=== PATIENT | female | born 1965 | race Caucasian/White ===

== ENCOUNTER → 2023-03-29 07:53 | Outpatient (BNVA) | payer OTHER, SELFPAY | PROVIDERS: PCP Internal Medicine; Visit Provider Psychiatry & Neurology Neurology | DX: G40.909 Epilepsy, unspecified, not intractable, without status epilepticus (principal) | CPT/HCPCS: 99202 ==

== ENCOUNTER 2024-08-14 15:24 | Outpatient (AMB) | payer OTHER, SELFPAY ==
--- NOTE | 2024-08-14 15:26 | A.OFFVIS_ITS ---
Vital Signs 08/14/24 15:27 Height 5 ft 6 in Weight 207 lb 8 oz BMI 33.5 BP 132/78 Blood Pressure Location Rt brachial Position Sitting Respiration 16 Pulse 80 Pulse Source Pulse Oximeter Pulse Oximetry (%) 97 Oxygen Delivery Method Room Air Intake Visit Reasons: 1yr follow up Seizure Intake Note: Pt presents to the office for follow up for seizure disorder. Rapid Extractor Operator Required: No Allergies Gadolinium-Containing Contrast Medi Allergy (Severe, Verified 08/14/24 15:27) Anaphylaxis pencillin Adverse Reaction (Intermediate, Uncoded 08/14/24 15:27) Itching Medication List - Last Reconciled 08/14/24 by Maite Dupont MD divalproex ER (Depakote ER) 2 tabs qam and 1 tab qhs orally daily; 90 days levothyroxine 100 mcg PO DAILY multivitamin (Daily Multi-Vitamin tablet) 1 tab PO DAILY HPI Comments Details: 59y/o female comes for follow up of seizures.she also has SALLY on CPAP . she reports having trouble focusing. she feels she was always like that but wondering if she has something going on. History from initial visit -She moved here from [place] 3 years ago and has not seen a neurologist since then. SHe was diagnosed with seizure disorder in 1981 when she was 16 and has been on medications since then.she has been seizure free since 2007.In 1995( she was seizure free for 8 years at that time ) one of her neurologist tried to wean her off medications. she was trialed on dilantin tegretol phenobarb. she had a paternal cousin and grandfather with seizures.The seizures are gen tonic clonic seizures with tongue biting. when younger it started with left arm twitching and warning. [facility] Medical History (Updated 08/14/24 @ 15:36 by Maite Dupont MD) Cognitive change SALLY on CPAP Liver injury Diverticulitis Depression Hypothyroid Hyperlipidemia Gallstones Surgical History H/O hernia repair Family History Father Bladder cancer Mother Alzheimer disease Social History Alcohol intake: current Alcohol intake frequency: holidays/special occasions only Patient Tobacco Use Status: Current everyday Tobacco user Substance Use Type: Marijuana Physical Exam Vital Signs: Last Vital Signs Pulse 80 08/14/24 15:27 Resp 16 08/14/24 15:27 BP 132/78 08/14/24 15:27 Pulse Ox 97 08/14/24 15:27 Oxygen Delivery Method Room Air 08/14/24 15:27 BMI result Body Mass Index 33.5 Const General: cooperative, healthy appearing and comfortable Nutritional Appearance: average body habitus Orientation/consciousness: patient oriented x3 Limitations: no limitations Eyes Pupils: Equal, round and reactive pupils present Neuro General: patient oriented x3, tone normal, moves all extremities and no focal motor deficits Cranial nerves: Yes Facial sensation intact/muscles of mastication intact, Yes Intact sense of smell present, Yes Equal, round and reactive pupils present, Yes Bilaterally intact EOM present, Yes Normal facial strength present, Yes Symmetric palate elevation present and Yes Ability to bilaterally elevate shoulders present Cognition (Neuro): normal cognition Gait exam (Neuro): Normal gait present Motor exam (neuro): 5/5 motor strength present throughout and Normal motor muscle tone present throughout Coordination: [id number] test normal Assessment & Plan Assessment & Plan (1) Seizure disorder: Code(s): G40.909 - Epilepsy, unspecified, not intractable, without status epilepticus (2) SALLY on CPAP: Code(s): G47.33 - Obstructive sleep apnea (adult) (pediatric); Z99.89 - Dependence on other enabling machines and devices Category: Medical (3) Cognitive change: Code(s): R41.89 - Other symptoms and signs involving cognitive functions and awareness Category: Medical Plan continue depakote ER 500mg 2 tabs qam and 1 tab qhs Cognitive therapy for attention Compliance with CPAP stressed Orders: Orders Complete Blood Count Auto Diff Today R41.89 - Other symptoms and signs involv ing cognitive functions and awareness TSH reflex Free T4 Today R41.89 - Other symptoms and signs involving cognitive functions and awareness Vitamin B12 and Folate Today R41.89 - Other symptoms and signs involving cognitive functions and awareness Vitamin D 25-OH (D2 and D3) Today R41.89 - Other symptoms and signs involving cognitive functions and awareness Erythrocyte Sedimentation Rate Today R41.89 - Other symptoms and signs involving cognitive functions and awareness Comprehensive Met. Panel Today R41.89 - Other symptoms and signs involving cognitive functions and awareness YAA Reflex Titer and Pattern Today R41.89 - Other symptoms and signs involving cognitive functions and awareness Referrals Speech and Hearing Referral R41.89 - Other symptoms and signs involving cog nitive functions and awareness Medications: Refilled divalproex ER (Depakote ER) 2 tabs qam and 1 tab qhs orally daily; 90 days 270 tabs 0RF Coding Level of Care Code Est Pt Level 4 (06216) Complex EM visit Add On G2211 Diagnoses Seizure disorder G40.909 SALLY on CPAP G47.33; Z99.89 Cognitive change R41.89
[2024-08-14 15:27] VITALS: BP 132/78; PULSE 80; RESP 16; O2SAT 97; BMI 33.5
== END 2024-08-14 15:57 | disposition home or self-care (01) ==
PROVIDERS: Visit Provider Psychiatry & Neurology Neurology
DX: G40.909 Epilepsy, unspecified, not intractable, without status epilepticus (principal); G47.33 Obstructive sleep apnea (adult) (pediatric); Z99.89 Dependence on other enabling machines and devices; R41.89 Other symptoms and signs involving cognitive functions and awareness
CPT/HCPCS: 99214; G2211

== ENCOUNTER 2024-08-14 15:45 | Outpatient (REF) | payer OTHER, SELFPAY ==
[2024-08-14 17:45] LABS: MANUAL DIFF FLAG NO
[2024-08-14 18:00] LABS: Basophils Absolute Auto 0.1 X10*3/uL (0.0-0.2); Basophils Percent Auto 0.6 % (0-2); Eosinophils Absolute Auto 0.2 X10*3/uL (0.0-0.4); Eosinophils Percent Auto 1.4 % (0-4); Hematocrit 43.1 % (37.0-47.0); Imm Gran Abs Auto 0.09 X10*3/uL (0.00-0.03); Imm Gran Pct Auto 0.7 % (0.0-0.4); Lymphocytes Absolute Auto 4.2 X10*3/uL (1.2-4.9); Lymphocytes Percent Auto 34.2 % (20-40); Mean Corpuscular HGB Conc 34.8 g/dl (31.0-35.0); Mean Corpuscular Hemoglobin 32.9 pg (27.0-33.0); Mean Corpuscular Volume 94.5 fL (80.0-98.0); Mean Platelet Volume 10.7 fL (9.4-12.3); Monocytes Absolute Auto 0.9 X10*3/uL (0.1-1.2); Monocytes Percent Auto 7.5 % (2-11); Neutrophils Absolute Auto 6.8 x10*3/uL (2.0-8.3); Neutrophils Percent Auto 55.6 % (45-73); Platelet Count 221 X10*3/uL (160-400); Red Blood Count 4.56 X10*6/uL (4.20-5.50); Red Cell Distribution Width 11.9 % (11.0-16.0); White Blood Count 12.2 X10*3/uL (4.8-10.8)
[2024-08-14 18:26] LABS: Alanine Aminotransferase 23 U/L (0-31); Albumin Level 4.1 g/dL (3.5-5.0); Alkaline Phosphatase 47 U/L (39-117); Anion Gap 12 (12-20); Aspartate Amino Transferase 23 U/L (5-31); Bilirubin Total 0.3 mg/dL (0.0-1.0); Blood Urea Nitrogen 17 mg/dL (9-16); Calcium 9.2 mg/dL (8.4-10.2); Carbon Dioxide 27 mmol/L (22-29); Chloride 107 mmol/L (96-108); Estimated Glomerular Filt Rate > 60; Glucose Random 93 mg/dL (60-115); Potassium 4.5 mmol/L (3.3-5.1); Sodium 141 mmol/L (135-145); Total Protein 6.9 g/dL (6.5-8.0)
[2024-08-14 18:43] LABS: Erythrocyte Sedimentation Rate 1 MM/HR (0-20)
[2024-08-14 18:46] LABS: TSH reflex Free T4 0.62 uIU/mL (0.32-4.0)
[2024-08-14 18:48] LABS: Folate 8.5 ng/mL (> or = 4.0); Vitamin B12 639 pg/mL (200-900)
[2024-08-16 12:13] LABS: Anti Nuclear Antibody Screen NEGATIVE (NEGATIVE)
[2024-08-20 16:43] LABS: Vitamin D 25-OH, D2 <4 ng/mL; Vitamin D 25-OH, D3 25 ng/mL; Vitamin D 25-OH, Total 25 ng/mL (30-100)
== END 2024-08-14 15:46 | disposition home or self-care (01) ==
LOC: HO.HKASLDS 15:45
PROVIDERS: Visit Provider Psychiatry & Neurology Neurology
DX: G40.909 Epilepsy, unspecified, not intractable, without status epilepticus (principal); G47.33 Obstructive sleep apnea (adult) (pediatric); R41.89 Other symptoms and signs involving cognitive functions and awareness; Z99.89 Dependence on other enabling machines and devices
CPT/HCPCS: 36415; 80053; 82306; 82607; 82746; 84443; 85025; 85652; 86038; 99212

== ENCOUNTER 2025-04-25 07:30 | Outpatient (AMB) | payer OTHER, SELFPAY ==
[2025-04-25 07:34] VITALS: BP 116/84; PULSE 81; O2SAT 97
--- NOTE | 2025-04-25 07:34 | A.OFFVIS_ITS ---
Vital Signs 04/25/25 07:34 Height 5 ft 6 in BP 116/84 Blood Pressure Location Rt brachial Position Sitting Pulse 81 Pulse Source Pulse Oximeter Pulse Oximetry (%) 97 Oxygen Delivery Method Room Air Intake Visit Reasons: 6 mo follow up Intake Note: Patient following up labs done 08/15/24 patient decline speech therapy. Patient has provided us with [facility] sleep study scanned Allergies Gadolinium-Containing Contrast Medi Allergy (Severe, Verified 04/25/25 07:36) Anaphylaxis pencillin Adverse Reaction (Intermediate, Uncoded 04/25/25 07:36) Itching Medication List - Last Reconciled 04/25/25 by Maite Dupont MD divalproex ER (Depakote ER) 2 tabs qam and 1 tab qhs orally daily; 90 days levothyroxine 100 mcg PO DAILY HPI Comments Details: 60y/o female comes for follow up of seizures.No seizures for past 15 years [facility] [place]. she also has SALLY on CPAP .Very compliant.Her CPAP is more than 5 years old and has a signal saying that the motor lifetime has exceeded. she reports having trouble focusing. she did not start cognitive therapy . she thinks her difficulty was related to her new job which made her very anxious.she switched to a differed employement and feeling better. History from initial visit -She moved here from [place] 3 years ago and has not seen a neurologist since then. SHe was diagnosed with seizure disorder in 1981 when she was 16 and has been on medications since then.she has been seizure free since 2007.In 1995( she was seizure free for 8 years at that time ) one of her neurologist tried to wean her off medications. she was trialed on dilantin tegretol phenobarb. she had a paternal cousin and grandfather with seizures.The seizures are gen tonic clonic seizures with tongue biting. when younger it started with left arm twitching and warning. [facility] Medical History Cognitive change SALLY on CPAP Liver injury Diverticulitis Depression Hypothyroid Hyperlipidemia Gallstones Surgical History H/O hernia repair Family History Father Bladder cancer Mother Alzheimer disease Social History Alcohol intake: current Alcohol intake frequency: holidays/special occasions only Patient Tobacco Use Status: Current everyday Tobacco user Substance Use Type: Marijuana Physical Exam Vital Signs: Last Vital Signs Pulse 81 04/25/25 07:34 BP 116/84 04/25/25 07:34 Pulse Ox 97 04/25/25 07:34 Oxygen Delivery Method Room Air 04/25/25 07:34 Const General: cooperative, healthy appearing and comfortable Nutritional Appearance: average body habitus Orientation/consciousness: patient oriented x3 Limitations: no limitations Eyes Pupils: Equal, round and reactive pupils present Neuro General: patient oriented x3, tone normal, moves all extremities and no focal motor deficits Cranial nerves: Yes Facial sensation intact/muscles of mastication intact, Yes Intact sense of smell present, Yes Equal, round and reactive pupils present, Yes Bilaterally intact EOM present, Yes Normal facial strength present, Yes Symmetric palate elevation present and Yes Ability to bilaterally elevate shoulders present Cognition (Neuro): normal cognition Gait exam (Neuro): Normal gait present Motor exam (neuro): 5/5 motor strength present throughout and Normal motor muscle tone present throughout Coordination: [id number] test normal Assessment & Plan Assessment & Plan (1) Seizure disorder: Code(s): G40.909 - Epilepsy, unspecified, not intractable, without status epilepticus (2) SALLY on CPAP: Code(s): G47.33 - Obstructive sleep apnea (adult) (pediatric); Z99.89 - Dependence on other enabling machines and devices Category: Medical (3) Cognitive change: Code(s): R41.89 - Other symptoms and signs involving cognitive functions and awareness Category: Medical Plan continue depakote ER 500mg 2 tabs qam and 1 tab qhs Compliance with CPAP stressed Home sleep test for reeval for new equipment Orders: Orders RT home sleep study Today G47.33 - Obstructive sleep apnea (adult) (pediatric), Z99.89 - Dependence on other enabling machines and devices Coding Level of Care Code Est Pt Level 4 (84097) Diagnoses Seizure disorder G40.909 SALLY on CPAP G47.33; Z99.89 Cognitive change R41.89
== END 2025-04-25 08:02 | disposition home or self-care (01) ==
LOC: HO.HSMS 07:30
PROVIDERS: PCP Internal Medicine; Visit Provider Psychiatry & Neurology Neurology
DX: G40.909 Epilepsy, unspecified, not intractable, without status epilepticus (principal); G47.33 Obstructive sleep apnea (adult) (pediatric); Z99.89 Dependence on other enabling machines and devices; R41.89 Other symptoms and signs involving cognitive functions and awareness
CPT/HCPCS: 99214

== ENCOUNTER → 2025-04-25 07:30 | Outpatient (BNVA) | payer OTHER, SELFPAY | PROVIDERS: PCP Internal Medicine; Visit Provider Psychiatry & Neurology Neurology | DX: G47.33 Obstructive sleep apnea (adult) (pediatric) (principal); Z79.899 Other long term (current) drug therapy; G43.909 Migraine, unspecified, not intractable, without status migrainosus; R41.89 Other symptoms and signs involving cognitive functions and awareness | CPT/HCPCS: 99212 ==

== ENCOUNTER → 2025-07-04 16:04 | Outpatient (REF) | payer OTHER, SELFPAY ==
--- OUTSIDE RECORDS SUMMARY | 2025-06-28 07:54 | XMS_ITS | Encounter Summary ---
Author Organization [facility] Address [address] [place] [address] Care Team Providers Care Buy Boat Operator Name Role Phone Heber Terrell MD Primary Care Provider [phone] Reason for Referral * Hospital - Outpatient (Routine) - Closed Specialty Diagnoses / Procedures Referred By Brittany hair Referred To Contact Gastroenterology Diagnoses History of colonic polyps Procedures COLONOSCOPY Anesthesia - MAC; [facility] ENDOSCOPY [place] COLONOSCOPY FLEXIBLE DIAGNOSTIC W COLLECTION SPECIMEN BRUSHING/WASHING Killian Saeed MD [address] [address] Phone: tel: fax: [facility] Endoscopy [address] [place] [address] Phone: tel: Referral ID Status Reason Start Date Expiration Date Visits Re quested Visits Authorized [id number] Closed 02/28/2025 02/28/2026 1 1 Reason for Visit * Auth/Cert (Routine) Specialty Diagnoses / Procedures Referred By Brittany hair Referred To Contact Diagnoses Personal history of colon polyps, unspecified Procedures COLONOSCOPY MN COLONOSCOPY FLEXIBLE DIAGNOSTIC W COLLECTION SPECIMEN BRUSHING/WASHING [facility] Endoscopy [address] [place] [address] Phone: tel: Referral ID Status Reason Start Date Expiration Date Visits Re quested Visits Authorized [id number] 1 1 Encounter Details Date Type Department Care Team (Latest Contact Info) Description 06/28/2025 7:54 AM EDT - 06/28/2025 11:59 PM EDT Hospital Encounter [facility] Endoscopy [address] [place] [address] Killian Saeed MD 175 [facility] [address] [place] [address] Andrew Brown MD [address] [place] [address] Ailin Vallejo, LEOABRDO [address] [place] [phone] History of colonic polyps Discharge Disposition: Home or Self Care Social History Tobacco Use Types Packs/Day Years Used Date Smoking Tobacco: Every Day Cigarettes 0.7 40.1 Started: 11/14/1983; Last attempted to quit: 12/21/2023 Smokeless Tobacco: Never Alcohol Use Standard Drinks/Week Comments Yes 1 (1 standard drink = 0.6 oz pur e alcohol) occas Housing Instability Answer Date Recorde d Are you worried that in the next 2 months you may not have stable housing? No 01/14/2025 Food Access & Nutrition Answer Date Rec orded Do you have access to a vari ety of food including fruits and vegetables? Yes 01/14/2025 Access to Healthcare Answer Date Record ed Within the last 3 months, ho w many times did you visit the emergency department for your medical care? 1 01/14/2025 Health Literacy Answer Date Recorded How often do you need to hav e someone help you when you read instructions, pamphlets, or other written material from your doctor or pharmacy? Never 01/14/2025 Caregiver: How often do you need to have someone help you when you read instructions, pamphlets, or other written material from your doctor or pharmacy? Not on file 01/14/2025 Financial Risk Answer Date Recorded How hard is it for you to pa y for the very basics like food, housing, medical care, and air conditioning / heating? Not very hard 01/14/2025 Transportation Answer Date Recorded Has the lack of transportati on kept you from meetings, work, or from getting things needed for daily living? No Has the lack of transportati on kept you from medical appointments or from getting medications? No 01/14/2025 Social Isolation Answer Date Recorded How often do you feel lonely or isolated from th ose around you? Never 01/14/2025 Food Risk Answer Date Recorded Within the past 12 months we worried whether our food would run out before we got money to buy more. Never true 01/14/2025 Within the past 12 months th e food we bought just didn't last and we didn't have money to get more. Never true 01/14/2025 Dependent Care Answer Date Recorded Do you need help finding or paying for care for your loved ones. For example, child care specialist or elderly care for an older adult? No 01/14/2025 Education Answer Date Recorded Do you think completing more education or training, like finishing a GED, going to college, or learning a trade, would be helpful for you? Patient declined 01/14/2025 Employment and Income Answer Date Recor ded During the last four weeks, have you been actively looking for work? No 01/14/2025 Living Situation Answer Date Recorded What is your living situation? 0 01/14/2025 Interpersonal Safety Answer Date Record ed Physical Abuse 06/28/2025 Verbal Abuse 06/28/2025 Comments No Sex and Gender Information Value Date Recorded Sex Assigned at Not on file Legal Sex Female 6:49 PM EST Gender Identity Not on file Sexual Orientation Not on file documented as of this encounter Last Filed Vital Signs Vital Sign Reading Time Taken Comments Blood Pressure 111/75 06/28/2025 10:36 AM EDT Pulse 78 06/28/2025 10:36 AM EDT Temperature 36.7 C (98 F) 06/28/2025 10:16 AM EDT Respiratory Rate 18 06/28/2025 10:36 AM EDT Oxygen Saturation 99% 06/28/2025 10:36 AM EDT Inhaled Oxygen Concentration - - Weight 85.3 kg (188 lb) 06/28/2025 9:42 AM EDT Height 167.6 cm (5' 6 ) 06/28/2025 9:42 AM EDT Body Mass Index 30.34 06/28/2025 9:42 AM EDT documented in this encounter Discharge Instructions * Attachments The following attachments cannot be sent through Care Everywhere. * Colonoscopy: Post op (Serbian) * Colon Polyps (Serbian) * Diverticulosis (Serbian) documented in this encounter Medications at Time of Discharge bisacodyL (DULCOLAX) 5 mg EC tablet Take 2 tablets by mouth right before beginning bowel prep. See instructions provided by the office 2 tablet 06/16/2025 divalproex (DEPAKOTE ER) 500 mg 24 hr tablet TAKE 2 TABS BY MOUTH IN THE MORNING AND 1 AT BEDTIME DAILY 06/11/2025 levothyroxine (SYNTHROID, LEVOTHROID) 100 mcg tablet Take 1 tablet (100 mcg total) by mouth 1 (one) time each day. 90 tablet 1 05/28/2025 polyethylene glycol (Golytely) 236-22.74-6.74 -5.86 gram solution Take 4L by mouth once for one dose. May substitue any PEG. Starting at 2PM the day before your procedure drink 1 8oz glasses at your own pace until you complete half of the gallon. Finish 2nd half of the gallon at 8PM. 4000 mL 06/16/2025 terbinafine (LamISIL) 250 mg tabletIndications :Dermatophytosis, nail Take 1 tablet (250 mg total) by mouth 1 (one) time each day. 90 each 06/20/2025 tirzepatide, weight loss, (Zepbound) 5 mg/0.5 mL injectionIndicati ons:Class 2 obesity due to excess calories with body mass index (BMI) of 36.0 to 36.9 in adult, unspecified whether serious comorbidity present Inject 0.5 mL (5 mg total) under the skin every 7 (seven) days. 2 mL 07/03/2025 Ventolin HFA 90 mcg/actuation inhaler TAKE 2 PUFFS (INHALATION) 4 TIMES PER DAY (SHORTNESS OF BREATH OR WHEEZING) FOR 1 WEEKS 12/31/2024 documented as of this encounter Discharge Disposition Disposition Code Departure Means Destination Home or Self Care documented in this encounter Progress Notes * Nicholas Andrews RN - 06/28/2025 10:30 AM EDT Problem: Cognitive:Periop Procedure - Minor Goal: Knowledge of disease or condition will improve Outcome: Adequate for Discharge Problem: Sensory:Periop Procedure - Minor Goal: Demonstrates/reports adequate pain control Outcome: Adequate for Discharge Patient tolerated fluids and snacks well. Spoke with Dr. Saeed about findings, Pt. Meets criteria for discharge. * Rosette Dinh RN - 06/28/2025 9:00 AM EDT Problem: Cognitive:Periop Procedure - Minor Goal: Knowledge of disease or condition will improve Outcome: Progressing Problem: Sensory:Periop Procedure - Minor Goal: Demonstrates/reports adequate pain control Outcome: Progressing documented in this encounter H&P Notes * Killian Saeed MD - 06/28/2025 9:00 AM EDT Pre-Op Diagnosis: History of colon polyps, advanced adenomas Proposed Procedure: Colonoscopy Performing Surgeon/MD/Endoscopist: Killian Saeed MD Medical/History: Past Medical History: Diagnosis Date Abdominal discomfort DX:Abdominal discomfort Diverticulitis DX:Diverticulitis Diverticulitis DX:Diverticulitis Diverticulosis DX:Diverticulosis Epilepsy (CMS/HCC V24, CMS/HCC V28) DX:Epilepsy (HCC) Epilepsy (CMS/HCC V24, CMS/HCC V28) DX:Epilepsy (HCC) History of diverticulitis DX:History of diverticulitis Hypothyroid DX:Hypothyroid Hypothyroidism DX:Hypothyroidism Sleep apnea Past Surgical History: Procedure Laterality Date CHOLECYSTECTOMY PROCEDURE:CHOLECYSTECTOMY CHOLECYSTECTOMY PROCEDURE: HISTORICAL CHOLECYSTECTOMY; COMMENT: liver repair COLONOSCOPY PROCEDURE:COLONOSCOPY COLONOSCOPY PROCEDURE: HISTORICAL COLONOSCOPY HERNIA REPAIR PROCEDURE:HERNIA REPAIR HERNIA REPAIR 11/2022 PROCEDURE: HISTORICAL HERNIA REPAIR/ING; COMMENT: Dr. Falcon LIVER SURGERY PROCEDURE:LIVER SURGERY OTHER SURGICAL HISTORY 10/2020 PROCEDURE: ---- OTHER ----; COMMENT: hysteroscopy with cervical dilation with uterine perforation Medications/Allergies: Prior to Admission medications Medication Sig Start Date End Date Taking? Authorizing Provider bisacodyL (DULCOLAX) 5 mg EC tablet Take 2 tablets by mouth right before beginning bowel prep. See instructions provided by the office 06/16/25 Yes MARILYN Fuentes divalproex (DEPAKOTE ER) 500 mg 24 hr tablet TAKE 2 TABS BY MOUTH IN THE MORNING AND 1 AT BEDTIME DAILY 06/11/25 Yes Historical Provider, levothyroxine (SYNTHROID, LEVOTHROID) 100 mcg tablet Take 1 tablet (100 mcg total) by mouth 1 (one)time each day. 05/28/25 Yes Heber Terrell MD polyethylene glycol (Golytely) 236-22.74-6.74 -5.86 gram solution Take 4L by mouth once for one dose. May substitue any PEG. Starting at 2PM the day before your procedure drink 1 8oz glasses at your own pace until you complete half of the gallon. Finish 2nd half of the gallon at 8PM. 06/16/25 Yes MARILYN Fuentes LORazepam (ATIVAN) 0.5 mg tablet Take 1 tablet (0.5 mg total) by mouth 1 (one) time each day if needed for anxiety for up to 20 days. Max Daily Amount: 0.5 mg 04/09/25 04/29/25 Heber Terrell MD terbinafine (LamISIL) 250 mg tablet Take 1 tablet (250 mg total) by mouth 1 (one) time each day. 06/20/25 09/18/25 Martínez Uribe DPM tirzepatide, weight loss, (Zepbound) 5 mg/0.5 mL injection Inject 0.5 mL (5 mg total) under the skin every 7 (seven) days. 05/27/25 Malini Falcon MD Ventolin HFA 90 mcg/actuation inhaler TAKE 2 PUFFS (INHALATION) 4 TIMES PER DAY (SHORTNESS OF BREATH OR WHEEZING) FOR 1 WEEKS 12/31/24 Historical Provider, bisacodyL (DULCOLAX) 5 mg EC tablet Take 2 tablets by mouth right before your first dose of liquid prep. 06/06/24 06/28/25 Historical Provider, divalproex (DEPAKOTE) [address] tablet 2 tabs by mouth in AM and 1 tab by mouth in PM 03/16/23 06/28/25 Historical Provider, Patient Age:60 y.o. Vitals: Vitals: 06/28/25 0942 BP: (!) 131/91 Pulse: 68 Resp: 18 Temp: 36.9 ??C (98.4 ??F) SpO2: 97% Physical Exam: Mental Status: Clear HEENT: WNL Heart: WNL Lungs: WNL Abdomen: WNL Extremities: WNL Neuro: WNL Labs: Imaging: Diagnosis/Plan: Colonoscopy documented in this encounter Plan of Treatment Upcoming Encounters Date Type Department Care Team (Late st Contact Info) Description 07/08/2025 2:30 PM EDT Nutrition Bariatric Surgery - [place] [address] [phone] Guillermina Aguirre, ILA [address] [phone] 07/22/2025 8:00 AM EDT Consult General Surgery [facility] [address] [phone] Rober Mazariegos MD [address] [address] 08/05/2025 3:00 PM EDT Office Visit Gastroenterology [address] [phone] Abena Stallings PA [address] [address] 09/10/2025 8:00 AM EDT Office Visit Bariatric Surgery [address] [phone] Malini Falcon MD [address] [phone] 09/27/2025 4:20 PM EST Appointment Radiology Department - [address] [phone] documented as of this encounter Procedures Procedure Name Priority Date/Time Associated Diagnosis Comments COLONOSCOPY Routine 06/28/2025 10:15 AM EDT History of colonic polyps TISSUE EXAM Routine 06/28/2025 10:06 AM EDT History of colonic polyps documented in this encounter Results * COLONOSCOPY Anesthesia - MAC; [facility] ENDOSCOPY (06/28/2025 10:15 AM EDT) Anatomical Region Laterality Modality Endoscopy 06/28/2025 9:53 AM EDT Impressions 06/28/2025 10:17 AM EDT - One diminutive polyp in the transverse colon, removed with a jumbo cold forceps. Resected and retrieved. - Severe diverticulosis in the entire examined colon. - One 10 mm polyp in the sigmoid colon, removed with a hot snare. Resected and retrieved. - Internal hemorrhoids. Recommendation: - Await pathology results. - Repeat colonoscopy in 3 years for surveillance. Narrative 06/28/2025 10:17 AM EDT [facility] GI Patient Name: Nona Riggins Procedure Date: 06/28/2025 9:53 AM Date of : 1965 Age: 60 Gender: Female Note Status: Finalized Attending MD: Killian Saeed MD, Procedure Date No Time: 06/28/2025 Procedure: Colonoscopy Indications: Surveillance: Piecemeal removal of large sessile adenoma last colonoscopy (< 3 yrs), High risk colon cancer surveillance: Personal history of colonic polyps Providers: Killian Saeed MD Referring MD: Killian Saeed MD Medicines: Monitored Anesthesia Care Complications: No immediate complications. Estimated blood loss: Minimal. Estimated Blood Loss: Estimated blood loss was minimal. Procedure: Pre-Anesthesia Assessment: - Prior to the procedure, a History and Physical was performed, and patient medications and allergies were reviewed. The patient is competent. The risks and benefits of the procedure and the sedation options and risks were discussed with the patient. All questions were answered and informed consent was obtained. Patient identification and proposed procedure were verified by the physician, the nurse, the engineered wood designer and the refinish technician in the pre-procedure area in the endoscopy suite. Mental Status Examination: alert and oriented. Airway Examination: normal oropharyngeal airway and neck mobility. Respiratory Examination: clear to auscultation. CV Examination: normal. Prophylactic Antibiotics: The patient does not require prophylactic antibiotics. Prior Anticoagulants: The patient has taken no anticoagulant or antiplatelet agents. ASA Grade Assessment: II - A patient with mild systemic disease. After reviewing the risks and benefits, the patient was deemed in satisfactory condition to undergo the procedure. The anesthesia plan was to use monitored anesthesia care (MAC). Immediately prior to administration of medications, the patient was re-assessed for adequacy to receive sedatives. The heart rate, respiratory rate, oxygen saturations, blood pressure, adequacy of pulmonary ventilation, and response to care were monitored throughout the procedure. The physical status of the patient was re-assessed after the procedure. After I obtained informed consent, the scope was passed under direct vision. Throughout the procedure, the patient's blood pressure, pulse, and oxygen saturations were monitored continuously. The Olympus Colonoscope was introduced through the anus and advanced to the cecum, identified by appendiceal orifice and ileocecal valve. The colonoscopy was performed without difficulty. The patient tolerated the procedure well. The quality of the bowel preparation was good. Findings: The perianal and digital rectal examinations were normal. A diminutive polyp was found in the transverse colon. The polyp was sessile. The polyp was removed with a jumbo cold forceps. Resection and retrieval were complete. Estimated blood loss was minimal. Many small and large-mouthed diverticula were found in the entire colon. A 10 mm polyp was found in the sigmoid colon. The polyp was pedunculated. The polyp was removed with a hot snare. Resection and retrieval were complete. Estimated blood loss was minimal. Internal hemorrhoids were found during retroflexion. The hemorrhoids were Grade I (internal hemorrhoids that do not prolapse). Procedure Code(s): --- Professional --- 37676, Colonoscopy, flexible; with removal of tumor(s), polyp(s), or other lesion(s) by snare technique 17887, 59, Colonoscopy, flexible; with biopsy, single or multiple Diagnosis Code(s): --- Professional --- D12.3, Benign neoplasm of transverse colon (hepatic flexure or splenic flexure) D12.5, Benign neoplasm of sigmoid colon CPT copyright 2020 [employer]. All rights reserved. The codes documented in this report are preliminary and upon boatswain's mate review may be revised to meet current compliance requirements. Killian Saeed MD 06/28/2025 10:17:20 AM This report has been signed electronically.Killian Saeed MD Number of Addenda: 0 Note Initiated On: 06/28/2025 9:53 AM Scope Withdrawal Time: 0 hours 9 minutes 20 seconds Scope In: 9:58:09 AM Scope Out: 10:13:57 AM Endoscopy Department at [facility] - [address] [place] [phone] Procedure Note Killian Saeed MD - 06/28/2025 [facility] GI Patient Name: Nona Riggins Procedure Date: 06/28/2025 9:53 AM Date of : 1965 Age: 60 Gender: Female Note Status: Finalized Attending MD: Killian Saeed MD, Procedure Date No Time: 06/28/2025 Procedure: Colonoscopy Indications: Surveillance: Piecemeal removal of large sessile adenoma last colonoscopy (< 3 yrs), High risk colon cancer surveillance: Personal history of colonicpolyps Providers: Killian Saeed MD Referring MD: Killian Saeed MD Medicines: Monitored Anesthesia Care Complications: No immediate complications. Estimated blood loss: Minimal. Estimated Blood Loss: Estimated blood loss was minimal. Procedure: Pre-Anesthesia Assessment: - Prior to the procedure, a History and Physicalwas performed, and patient medications and allergieswere reviewed. The patient is competent. The risks and benefits of the procedure and the sedation optionsand risks were discussed with the patient. Allquestions were answered and informed consent was obtained. Patient identification and proposed procedure were verified by the physician, the nurse, theanesthetist and the refinish technician in the pre-procedure area in the endoscopy suite. Mental Status Examination: alertand oriented. Airway Examination: normal oropharyngeal airway and neck mobility. Respiratory Examination: clear to auscultation. CV Examination: normal. Prophylactic Antibiotics: The patient does notrequire prophylactic antibiotics. Prior Anticoagulants: The patient has taken no anticoagulant or antiplatelet agents. ASA Grade Assessment: II - A patient withmild systemic disease. After reviewing the risks and benefits, the patient was deemed in satisfactory condition to undergo the procedure. The anesthesia plan was to use monitored anesthesia care (MAC). Immediately prior to administration of medications, the patient was re-assessed for adequacy to receive sedatives. The heart rate, respiratory rate, oxygen saturations, blood pressure, adequacy of pulmonary ventilation, and response to care were monitored throughout the procedure. The physical status ofthe patient was re-assessed after the procedure. After I obtained informed consent, the scope was passed under direct vision. Throughout theprocedure, the patient's blood pressure, pulse, and oxygen saturations were monitored continuously. TheOlympus Colonoscope was introduced through the anus and advanced to the cecum, identified by appendiceal orifice and ileocecal valve. The colonoscopy was performed without difficulty. The patient tolerated the procedure well. The quality of the bowel preparation was good. Findings: The perianal and digital rectal examinations were normal. A diminutive polyp was found in the transversecolon. The polyp was sessile. The polyp was removed with a jumbo cold forceps. Resection and retrieval were complete. Estimated blood loss was minimal. Many small and large-mouthed diverticula were foundin the entire colon. A 10 mm polyp was found in the sigmoid colon. The polyp was pedunculated. The polyp was removed witha hot snare. Resection and retrieval were complete. Estimated blood loss was minimal. Internal hemorrhoids were found duringretroflexion. The hemorrhoids were Grade I (internal hemorrhoids that do not prolapse). Procedure Code(s): --- Professional --- 88305, Colonoscopy, flexible; with removal of tumor(s), polyp(s), or other lesion(s) by snare technique 41192, 59, Colonoscopy, flexible; with biopsy,single or multiple Diagnosis Code(s): --- Professional --- D12.3, Benign neoplasm of transverse colon (hepatic flexure or splenic flexure) D12.5, Benign neoplasm of sigmoid colon CPT copyright 2020 [employer]. All rights reserved. The codes documented in this report are preliminary and upon boatswain's mate reviewmay be revised to meet current compliance requirements. Killian Saeed MD 06/28/2025 10:17:20 AM This report has been signed electronically.Killian Saeed MD Number of Addenda: 0 Note Initiated On: 06/28/2025 9:53 AM Scope Withdrawal Time: 0 hours 9 minutes 20 seconds Scope In: 9:58:09 AM Scope Out: 10:13:57 AM Endoscopy Department at [facility] - [address] [place] [phone] IMPRESSION: - One diminutive polyp in the transverse colon, removed with a jumbo cold forceps. Resected and retrieved. - Severe diverticulosis in the entire examinedcolon. - One 10 mm polyp in the sigmoid colon, removedwith a hot snare. Resected and retrieved. - Internal hemorrhoids. Recommendation: - Await pathology results. - Repeat colonoscopy in 3 years for surveillance. us Killian Saeed MD GI~PROCEDURE ORDERABLES Fin al Result * Tissue exam (06/28/2025 10:06 AM EDT) Final Diagnosis A. Large Intestine, Transverse Colon, polyp x1: - Tubular adenoma. B. Large Intestine, Sigmoid Colon, polyp x 1: - Hyperplastic polyp with mucosal prolapse changes. 07/01/2025 9:04 AM EDT [facility] Gross Description A. Large Intestine, Transverse Colon, polyp x 1: Labeled polyp x 1 trans colon . Received in formalin is a 0.3 x 0.2 x 0.2 cm soft, stuart-pink, polypoid tissue, which is inked blue at the base, wrapped in paper and submitted in toto in one cassette, one piece, multiple levels. B. Large Intestine, Sigmoid Colon, polyp x 1: Labeled polyp x 1 sig colon . Received in formalin is a 0.7 x 0.6 x 0.4 cm soft, pink-red, polypoid tissue, which is inked blue at the base, bisected, wrapped in paper and submitted in entirety in one cassette, two pieces, multiple levels. 07/01/2025 9:04 AM EDT [facility] Disclaimer Unless otherwise specified, all tissue is 10% NB formalin fixed and paraffin embedded. 07/01/2025 9:04 AM EDT [facility] Tissue Transverse colon structure / Unknown 06/28/2025 10:06 AM EDT 06/28/2025 11:22 AM EDT Tissue specimen (specimen) Sigmoid colon structure / Unknown 06/28/2025 10:12 AM EDT 06/28/2025 11:22 AM EDT us Killian Saeed MD LAB PATHOLOGY ORDERABLES Fi nal Result [facility]) [facility] [address] [place] [address], documented in this encounter Visit Diagnoses Diagnosis History of colonic polyps Personal history of colonic polyps documented in this encounter Discontinued Medications Medication Sig Discontinue Reason Start Date End Da te bisacodyL (DULCOLAX) 5 mg EC tablet Take 2 tablets by mouth right before your first dose of liquid prep. Duplicate order 06/06/2024 06/28/2025 divalproex (DEPAKOTE) [address] tablet 2 tabs by mouth in AM and 1 tab by mouth in PM Duplicate order 03/16/2023 06/28/2025 documented as of this encounter Historical Medications * This list may reflect changes made after this encounter. divalproex (DEPAKOTE ER) 500 mg 24 hr tablet TAKE 2 TABS BY MOUTH IN THE MORNING AND 1 AT BEDTIME DAILY 06/11/2025 Ventolin HFA 90 mcg/actuation inhaler TAKE 2 PUFFS (INHALATION) 4 TIMES PER DAY (SHORTNESS OF BREATH OR WHEEZING) FOR 1 WEEKS 12/31/2024 added in this encounter Additional Health Concerns Assessment Noted Time PHQ-9 Depression Total Score: 0 04/23/20 25 8:14 AM EDT documented as of this encounter Care Teams Buy Boat Operator Relationship Specialty Start Date End Date Heber Terrell MD 175 [facility] [address] [place] [address] PCP - General Internal Medicine 11/27/24 documented as of this encounter
--- OUTSIDE RECORDS SUMMARY | 2025-07-04 16:07 | XMS_ITS | Encounter Summary ---
Author Organization [facility] Address [address] [place] [phone] Phone Care Team Providers Care Comedian Name Role Phone Abraham Rosario MD Primary Care Provider Encounter Details Date Type Department Care Team (Late st Contact Info) Description 09/02/2020 Procedure Pass [facility], Ct Scan - [facility] [address] [place] [address] Social History Tobacco Use Types Packs/Day Years Used Date Smoking Tobacco: Every Day Smokeless Tobacco: Never Alcohol Use Standard Drinks/Week Comments Yes 0 (1 standard drink = 0.6 oz pur e alcohol) Comments Unknown Sex and Gender Information Value Date Recorded Sex Assigned at Female 09/02/2020 10:03 AM EDT Legal Sex Female 9:48 AM EDT Gender Identity Female 09/02/2020 10:03 AM EDT Sexual Orientation Not on file documented as of this encounter Plan of Treatment Not on file documented as of this encounter Visit Diagnoses Not on filedocumented in this encounter Care Teams Comedian Relationship Specialty Start Date End Date Abraham Rosario MD PCP - General Internal Medicine 09/02/20 documented as of this encounter Additional Source Comments The information contained in this document represents components of the legal health record. It is not the complete legal health record.[facility]
--- OUTSIDE RECORDS SUMMARY | 2025-07-04 16:07 | XMS_ITS | Clinical Summary ---
Author Organization [employer] [facility] Address [address] [place] [address] Care Team Providers Care Nurse Case Manager Name Role Phone Heber Terrell MD Primary Care Provider Unavailab le Allergies Active Allergy Reactions Criticality Noted Date Comments Iodinated Contrast Media 09/23/2021 Latex 09/23/2021 Penicillins 09/23/2021 Medications Medication Sig Dispensed Refills Start Date End Date Status divalproex (DEPAKOTE) [address] tablet Take 1 tablet (500 mg total) by mouth 3 (three) times a day. 0 Active levothyroxine (SYNTHROID) tablet 100 mcg Take 100 mcg by mouth every morning on an empty stomach. 0 Active Active Problems Problem Noted Date Diagnosed Date Erythrocytosis 09/23/2021 Obstructive sleep apnea 09/23/2021 Current every day smoker 08/31/2020 Nonintractable epilepsy without status epileptic us 08/31/2020 Hypothyroidism 08/31/2020 Family History Medical History Relation Name Comments Bladder Cancer Father Diabetes Father Alzheimer's disease Mother Relation Name Status Comments Father Alive Mother Social History Tobacco Use Types Packs/Day Years Used Date Smoking Tobacco: Every Day Cigarettes 1 30 Smokeless Tobacco: Never Tobacco Cessation:Ready to Q uit: Not Asked; Counseling Given: Not Answered Alcohol Use Standard Drinks/Week Comments Yes 0 (1 standard drink = 0.6 oz pur e alcohol) Sex and Gender Information Value Date Recorded Sex Assigned at Not on file Gender Identity Not on file Sexual Orientation Not on file Job Start Date Occupation Industry Not on file Not on file Not on file Last Filed Vital Signs Vital Sign Reading Time Taken Comments Blood Pressure 124/72 04/07/2023 9:09 AM EDT Pulse 83 04/07/2023 9:09 AM EDT Temperature 36.9 C (98.5 F) 04/07/2023 9:09 AM EDT Respiratory Rate - - Oxygen Saturation 99% 04/07/2023 9:09 AM EDT Inhaled Oxygen Concentration - - Weight 91.2 kg (201 lb) 04/07/2023 9:09 AM EDT Height 167.6 cm (5' 6 ) 03/11/2023 9:05 AM EDT Body Mass Index 32.44 03/11/2023 9:05 AM EDT Plan of Treatment Health Maintenance Due Date Last Done Comments Hepatitis C Screening 1964 Lung Cancer Screening (Low D ose CT) 1964 COVID-19 Vaccine (#1) 1964 Pneumococcal Vaccine (1 of 2 - PCV) 1970 Depression Screening 1976 BMI Counseling 1982 Preventative Health Evaluation 1982 Tobacco Cessation Counseling 1982 DTap / Tdap / Td (1 - Tdap) 1983 Cervical Cancer Screening (P ap Smear) 1985 Colon Cancer Screening (Colonoscopy) 2009 Breast Cancer Screening (Mammogram) 2014 Shingrix-Zoster Vaccine (1 of 2) 2014 Influenza Vaccine (#1) 2025 RSV Adult > 60+ Yrs or Pregn ant (1 - 1-dose 75+ series) 2039 Hepatitis B Vaccines Aged Out No long er eligible based on patient's age to complete this topic RSV Ped < 20 months Aged Out No longe r eligible based on patient's age to complete this topic Care Teams Nurse Case Manager Relationship Specialty Start Date End Date Heber Terrell MD PCP - General Internal Medicine 12/17/22
--- OUTSIDE RECORDS SUMMARY | 2025-07-04 16:07 | XMS_ITS ---
Author Name [facility] Organization Unknown Care Team Organization Name Specialty Phone Email Start Date End [facility] STEVEN BRENNER Primary Care 09/21/2022 07/02/20 24
== END ==
LOC: HO.SL 16:04
PROVIDERS: PCP Internal Medicine; Visit Provider Psychiatry & Neurology Neurology
DX: G47.33 Obstructive sleep apnea (adult) (pediatric) (principal); Z99.89 Dependence on other enabling machines and devices
CPT/HCPCS: 95806

== ENCOUNTER → 2025-07-04 16:16 | Outpatient (BNV) | payer OTHER, SELFPAY | PROVIDERS: PCP Internal Medicine; Visit Provider Internal Medicine | DX: R06.83 Snoring (principal) | CPT/HCPCS: 95806 ==

== ENCOUNTER 2025-10-28 15:38 | Outpatient (AMB) | payer OTHER, SELFPAY ==
--- OUTSIDE RECORDS SUMMARY | 2025-10-26 09:50 | XMS_ITS | Encounter Summary ---
Author Organization [facility] [address] Care Team Providers Care Clam Sorter Name Role Phone Heber Terrell MD Primary Care Provider [phone] Reason for Referral * Imaging (Routine) - Authorized Specialty Diagnoses / Procedures Referred By Contac t Referred To Contact Radiology Diagnoses Encounter for screening mammogram for breast cancer Procedures MG Mammo Digital Screening w Mick bilat [facility], Self Referral [facility] Referral ID Status Reason Start Date Expiration Date V isits Requested Visits Authorized [id number] Authorized 09/30/2025 09/30/2026 1 1 * Imaging (Routine) - Authorized Specialty Diagnoses / Procedures Referred By Contac t Referred To Contact Radiology Diagnoses Encounter for screening mammogram for breast cancer Procedures MG Mammo Digital Screening w Mick bilat [facility]ppl, Self Referral [facility] Referral ID Status Reason Start Date Expiration Date V isits Requested Visits Authorized [id number] Authorized 09/30/2025 09/30/2026 1 1 Reason for Visit * Imaging (Routine) - Authorized Specialty Diagnoses / Procedures Referred By Contac t Referred To Contact Radiology Diagnoses Encounter for screening mammogram for breast cancer Procedures MG Mammo Digital Screening w Mick bilat [facility]ppl, Self Referral [facility] Referral ID Status Reason Start Date Expiration Date V isits Requested Visits Authorized [id number] Authorized 09/30/2025 09/30/2026 1 1 Encounter Details Date Type Department Care Team (Latest Contact Info) Description 10/26/2025 9:50 AM EST - 10/26/2025 11:59 PM [facility] En[facility] [address] [phone] Encounter for screening mammogram for breast cancer Discharge Disposition: Home or Self Care Social [...] Record ed Within the last 3 months, bob mayo many times did you visit the emergency [...] for your loved ones. For example, child nutrition manager or elderly care for an older adult? [...] Date Recorded What is your living situation? Unrecognized valu e 01/14/2025 Interpersonal Safety Answer Date Record ed Physical Abuse Unrecognized value 06/28/2025 Verbal Abuse Unrecognized value 06/28/2025 Comments No Sex and Gender Information Value Date Recorded Sex Assigned at Not on file Legal Sex Female 6:49 PM EST Gender Identity Not on file Sexual Orientation Not on file documented as of this encounter Medications at Time of Discharge betamethasone dipropionate (DIPROSONE) 0.05 % cream Apply twice a day of the rash for 10 days 45 g 1 09/16/2025 divalproex (DEPAKOTE ER) 500 mg 24 hr tablet TAKE 2 TABS BY MOUTH IN THE MORNING AND 1 AT BEDTIME DAILY 06/11/2025 levothyroxine (SYNTHROID, LEVOTHROID) 100 mcg tablet Take 1 tablet (100 mcg total) by mouth 1 (one) time each day. 90 tablet 1 08/30/2025 tirzepatide, weight loss, (Zepbound) 5 mg/0.5 mL injectionIndicatio ns:Class 2 obesity due to excess calories with body mass index (BMI) of 36.0 to 36.9 in adult, unspecified whether serious comorbidity present Inject 0.5 mL (5 mg total) under the skin every 7 (seven) days. 2 mL 10/25/2025 Ventolin HFA 90 mcg/actuation inhaler TAKE 2 PUFFS (INHALATION) 4 TIMES PER DAY (SHORTNESS OF BREATH OR WHEEZING) FOR 1 WEEKS 12/31/2024 documented as of this encounter Discharge Disposition Disposition Code Departure Means Destination Home or Self Care documented in this encounter Plan of Treatment Upcoming Encounters Date Type Department Care Team (Late st Contact Info) Description 01/06/2026 3:00 PM EST Nutrition Bariatric Surgery - [place] [address] [facility] [address] [place] [phone] Guillermina Aguirre, RD 175 [facility] [address] [place] [phone] 01/16/2026 3:00 PM EST Office Visit Orthopedic Surgery - [place] 250 [address] [facility] [address] [place] [phone] Martínez Uribe DPM [address] [address] 03/06/2026 4:00 PM EDT Office Visit Bariatric Surgery - [place] 175 [facility] [address] [place] [phone] Malini Falcon MD [address] [place] [phone] 08/06/2026 3:00 PM EDT Office Visit Gastroenterology - 299 [facility] [address] [phone] Abena Stallings PA [address] [address] Pending Results Name Type Priority Associated Diagnoses Date /Time MG Mammo Digital Screening w Mick bilat Imaging Routine Encounter for screening mammogram for breast cancer 10/26/2025 10:03 AM EST Scheduled Orders Name Type Priority Associated Diagnoses Orde r Schedule MG Mammo Digital Screening w Mick bilat Imaging Routine Encounter for screening mammogram for breast cancer Expected: 09/30/2025, Expires: 09/30/2026 MG Mammo Digital Screening w Mick bilat Imaging Routine Encounter for screening mammogram for breast cancer Once for 1 Occurrences starting 10/26/2025 until 10/26/2025 documented as of this encounter Visit Diagnoses Diagnosis Encounter for screening mammogram for breast cancer documented in this encounter Additional Health Concerns Assessment Noted Time PHQ-9 Depression Total Score: 0 04/23/20 8:14 AM EDT documented as of this encounter Care Teams Clam Sorter Relationship Specialty Start Date End Date Heber Terrell MD [address] [address] PCP - General Internal Medicine 11/27/24 documented as of this encounter
[2025-10-28 15:47] VITALS: BP 114/74; PULSE 88; O2SAT 96; BMI 28.4
--- NOTE | 2025-10-28 15:47 | MHC.OFFVIS ---
Vital Signs 10/28/25 15:47 Height 5 ft 6 in Weight 176 lb 4 oz BMI 28.4 BP 114/74 Blood Pressure Location Rt brachial Position Sitting Pulse 88 Pulse Source Pulse Oximeter Pulse Oximetry (%) 96 Oxygen Delivery Method Room Air Intake Visit Reasons: 6 mo follow up Intake Note: Patient presents follow up Seizure/SALLY. HST in chart(AHI-2, VINCE-83%). Snores on and off. Currently on Zepbound. Weird feeling in head Accompanied by: Self / Same As Patient Allergies Gadolinium-Containing Contrast Medi Allergy (Severe, Verified 10/28/25 15:49) Anaphylaxis pencillin Adverse Reaction (Intermediate, Uncoded 04/25/25 07:36) Itching HPI Comments Details: 60y/o female with seizure disorder comes for a follow up of sleep study. She has not had a seizure in the past 15years. HST reviewed with pt. today and is an inconclusive HST AHI of 1.9/hr with O2 desaturation to 83% for >5min. She has mild snoring. Will have her complete an in-lab PSG, due to seizure disorder and constant r. sided temporal, lightening bolt like sharp pain which lasts for a few seconds to 20seconds. She says the pulsating pain is explosive like in her r. ear for years now. Denies headaches, vision changes, facial injuries, vertigo, dizziness and falls. She has lost 25lbs since starting zepbound and says she notices increase in hair loss and bald spots in the back of her head. She was diagnosed with sally in 2017, starting using her CPAP 5 years ago. She sleeps well when she has cpap mask on her face and wakes up feeling more refreshed. She is concerned as the motor lifetime has exceeded message signals on her machine. She goes to bed at 9pm, wakes up at 5:30am, with 2-3 bathroom break. She denies bruxism, acid refluxa and RLS symptoms. Memory is good at baseline, she has difficulty learning new processes, billing, inventory and any new tasks. Her fh is + for dementia mom diagnosed in mid 60s. She has difficulty with word recall, gets frustrated, and her processing speed is slow. She reports having trouble focusing, panics when driving as she gets lost while using the navigation for directions. She used to be very well organized. She did not start cognitive therapy and discussed today regarding anxiety, feeling strong emotions due to her divorce and employment, which have impacted her ability to learn tasks. She changed her professions after 30 years and now enjoys her new job. She takes Jaskaran biotin and collagen for hair, skin and nails. She smokes 1/2 pack of cigarettes per day and MJ daily, with edibles to help induce sleep. History from initial visit -She moved here from [place] 3 years ago and has not seen a neurologist since then. SHe was diagnosed with seizure disorder in 1981 when she was 16 and has been on medications since then.she has been seizure free since 2007.In 1995( she was seizure free for 8 years at that time ) one of her neurologist tried to wean her off medications. she was trialed on dilantin tegretol phenobarb. she had a paternal cousin and grandfather with seizures.The seizures are gen tonic clonic seizures with tongue biting. when younger it started with left arm twitching and warning. [facility] Medical History Cognitive change SALLY on CPAP Liver injury Diverticulitis Depression Hypothyroid Hyperlipidemia Gallstones Surgical History H/O hernia repair Family History Father Bladder cancer Mother Alzheimer disease Social History Alcohol intake: current Alcohol intake frequency: holidays/special occasions only Patient Tobacco Use Status: Current everyday Tobacco user Substance Use Type: Marijuana Physical Exam Vital Signs: Last Vital Signs Pulse 88 10/28/25 15:47 BP 114/74 10/28/25 15:47 Pulse Ox 96 10/28/25 15:47 Oxygen Delivery Method Room Air 10/28/25 15:47 BMI result Body Mass Index 28.4 Const General: cooperative, healthy appearing and comfortable Nutritional Appearance: average body habitus Orientation/consciousness: patient oriented x3 Limitations: no limitations Eyes Pupils: Equal, round and reactive pupils present Neuro Other: bilateral upper extremity tremor mild General: patient oriented x3, tone normal, moves all extremities and no focal motor deficits Cranial nerves: Yes Facial sensation intact/muscles of mastication intact, Yes Intact sense of smell present, Yes Equal, round and reactive pupils present, Yes Bilaterally intact EOM present, Yes Normal facial strength present, Yes Symmetric palate elevation present and Yes Ability to bilaterally elevate shoulders present Cognition (Neuro): normal cognition Gait exam (Neuro): Normal gait present Motor exam (neuro): 5/5 motor strength present throughout and Normal motor muscle tone present throughout Coordination: [id number] test normal Psych Appearance: well kempt Attitude: cooperative Thought process: Normal thought process present Results Reviewed Results Reviewed: 07/2025 HST reviewed with pt is inconclusive AHI is 1.9/her and oxygen nadirs to 83%, mild snoring. Will re-evalaute her in the lab with a PSG. Labs and most recent EEG results requested from Dr. Buck's office in [place]. Assessment & Plan Assessment & Plan (1) Seizure disorder: Code(s): G40.909 - Epilepsy, unspecified, not intractable, without status epilepticus (2) SALLY on CPAP: Code(s): G47.33 - Obstructive sleep apnea (adult) (pediatric); Z99.89 - Dependence on other enabling machines and devices Category: Medical (3) Cognitive change: Code(s): R41.89 - Other symptoms and signs involving cognitive functions and awareness Category: Medical (4) Tremor of both outstretched hands: Code(s): R25.1 - Tremor, unspecified Category: Medical (5) Forgetfulness: Code(s): R68.89 - Other general symptoms and signs Category: Medical Plan Seizure disorder continue depakote ER 500mg 2 tabs qam and 1 tab qhs HST reviewed with pt today and it is inconclusive, she sleeps well with her machine and uses a full face mask. Will evaluate her with psg in lab, she has Compliance with CPAP stressed due to seizure disorder, will write her a rx for cpap use as pt continues to have r. sided shocking pain. and a h/o has seizure disorder. Avoid stressors, hunger, triggers, get plenty of rest and sleep, eat meals on time. F/U in 3 months after PSG. Patient Instructions: Sleep compliance is reviewed. Sleep hygiene is reviewed. Labs and EEG will request from pcp's office. Coding Level of Care Code Est Pt Level 4 (04646) Diagnoses Seizure disorder G40.909 SALLY on CPAP G47.33; Z99.89 Cognitive change R41.89 Tremor of both outstretched hands R25.1 Forgetfulness R68.89
--- OUTSIDE RECORDS SUMMARY | 2025-10-28 22:08 | XMS_ITS | Encounter Summary ---
Author Organization [facility] [place] [address] Care Team Providers Care Electrical Assembly Technician Name Role Phone Heber Terrell MD Primary Care Provider [phone] Encounter Details Date Type Department Care Team ([facility] st Contact Info) Description 09/30/2025 Telephone Internal Medicine - [place] 175 [facility] [address] [place] [phone] Heber Terrell MD 175 [facility] 200 [place] [address] Social History Tobacco Use Types Packs/Day Years [...] for your loved ones. For example, child and youth program assistant or elderly care for an older adult? [...] on file documented as of this encounter Progress Notes * Carole Tobias MA - 10/02/2025 10:15 AM EST Spoke to patient and she's aware of blood work results. * Reina Bergeron - 09/30/2025 3:35 PM EST In response to labs look fine Patient states concerned about CBC results abnormal Please review and contact her with response documented in this encounter Plan of Treatment Upcoming Encounters Date Type Department Care Team (Late st Contact Info) Description 01/06/2026 3:00 PM EST Nutrition Bariatric Surgery - [place] [address] [phone] Guillermina Aguirre, ILA [address] [phone] 01/16/2026 3:00 PM EST Office Visit Orthopedic Surgery - [place] 250 175 [facility] 250 [place] [phone] Martínez Uribe, DPM [address] [address] 03/06/2026 4:00 PM EDT Office Visit Bariatric Surgery - [place] [address] [phone] Malini Falcon MD 230 [place] [address] 08/06/2026 3:00 PM EDT Office Visit Gastroenterology - 299 [facility] 299 [facility] [address] [place] [phone] Abena Stallings PA [address] [address] documented as of this encounter Visit Diagnoses Not on filedocumented in this encounter Additional Health Concerns Assessment Noted Time PHQ-9 Depression Total Score: 0 04/23/20 25 8:14 AM EDT documented as of this encounter Care Teams Electrical Assembly Technician Relationship Specialty Start Date End Date Heber Terrell MD [address] [address] PCP - General Internal Medicine 11/27/24 documented as of this encounter
--- OUTSIDE RECORDS SUMMARY | 2025-10-28 22:08 | XMS_ITS | Clinical Summary ---
Author Organization [facility] Address [address] [place] [address] Phone Care Team Providers Care Practice Specialist Name Role Phone Abraham Rosario MD Primary Care Provider Allergies Active Allergy Reactions Criticality Noted Date Comments Iodinated Contrast Media Anaphylaxis High 09/02/2020 Penicillins 09/02/2020 Medications divalproex (DEPAKOTE) [address] tablet Take 500 mg by mouth 3 (three) times a day. Active levothyroxine (SYNTHROID, LEVOTHROID) 88 MCG tablet Take 88 mcg by mouth every morning. Active oxyCODONE-aceta minophen (PERCOCET) 5-325 mg per tablet Take 1 tablet by mouth every 6 (six) hours as needed for pain (specific location in comments). Partial fill ok 8 tablet 09/02/2020 Active Social History Tobacco Use Types Packs/Day Years Used Date Smoking Tobacco: Every Day Smokeless Tobacco: Never Alcohol Use Standard Drinks/Week Comments Yes 0 (1 standard drink = 0.6 oz pur e alcohol) Education Answer Date Recorded Are you interested in more education? Not on ana paula e 03/11/2023 Are you concerned about learning? Not on file 03/11/2023 No 03/11/2023 No 03/11/2023 Digital Access Answer Date Recorded No 04/12/2023 No 04/12/2023 Reliable internet access at home? Not on file 04/12/2023 Device with a working camera? Not on file Comments Unknown Sex and Gender Information Value Date Recorded Sex Assigned at Female 09/02/2020 10:03 AM EDT Legal Sex Female 9:48 AM EDT Gender Identity Female 09/02/2020 10:03 AM EDT Sexual Orientation Not on file Last Filed Vital Signs Vital Sign Reading Time Taken Comments Blood Pressure 105/57 09/02/2020 1:00 PM EDT Pulse 60 09/02/2020 12:42 PM EDT Temperature 36.2 C (97.2 F) 09/02/2020 9:57 AM EDT Respiratory Rate 16 09/02/2020 9:57 AM EDT Oxygen Saturation 98% 09/02/2020 1:00 PM EDT Inhaled Oxygen Concentration - - Weight 98.9 kg (218 lb) 09/02/2020 9:57 AM EDT Height 167.6 cm (5' 6 ) 09/02/2020 9:57 AM EDT Body Mass Index 35.19 09/02/2020 9:57 AM EDT Plan of Treatment Not on file Medical Devices Not on file [place] [address] Member Subscriber Plan / Payer (Ef fective 2020-Present) Name:Nona Riggins Relation to Subscriber:Self Name:Nona Riggins Payer ID:Not on file Type:[facility] Address: [place] [id number] Care Teams Practice Specialist Relationship Specialty Start Date End Date Abraham Rosario MD PCP - General Internal Medicine 09/02/20 Additional Source Comments The information contained in this document represents components of the legal health record. It is not the complete legal health record.[facility]
--- OUTSIDE RECORDS SUMMARY | 2025-10-28 22:08 | XMS_ITS | Encounter Summary ---
Author Organization [facility] [place] [address] Care Team Providers Care Stockroom Clerk Name Role Phone Heber Terrell MD Primary Care Provider [phone] Reason for Visit * Reason Onset Date Comments Results 09/27/2025 Encounter Details Date Type Department Care Team (Late st Contact Info) Description 09/27/2025 Results Follow-Up Obstetrics and Gynecology - [place] [address] [place], [place] [phone] Trudi Huber, RN Social History Tobacco Use Types Packs/Day Years [...] care for your loved ones. For example, care process manager or elderly care for an older [...] as of this encounter Progress Notes * Reina Bergeron - 09/30/2025 3:34 PM EST However patient states looks abnormal CBC Contact her with response . * Jeanette Hazel MA - 09/30/2025 3:20 PM EST Called pt left vm to call office back in regard to labs,. * Jeanette Hazel MA - 09/30/2025 3:20 PM EST ----- Message from Doug Terrell MD sent at 09/28/2025 7:51 AM EST ----- Labs are looking fine. ----- Message ----- From: Lab, Background User Sent: 09/27/2025 12:17 PM EST To: Heber Terrell MD documented in this encounter Plan of Treatment Upcoming Encounters Date Type Department Care Team (Late st Contact Info) Description 01/06/2026 3:00 PM EST Nutrition Bariatric Surgery - [place] [address] [phone] Guillermina Aguirre, RD [address] [phone] 01/16/2026 3:00 PM EST Office Visit Orthopedic Surgery - [place] [address] [facility] [address] [place] [phone] Martínez Uribe, DPM [address] [phone] 03/06/2026 4:00 PM EDT Office Visit Bariatric Surgery - [place] 175 [facility] [address] [place] [phone] Malini Falcon MD [address] [place] [phone] 08/06/2026 3:00 PM EDT Office Visit Gastroenterology - [address] [facility] 299 [facility] [address] [place] [phone] Abena Stallings PA [address] [facility] [address] [place] [address] documented as of this encounter Visit Diagnoses Not on filedocumented in this encounter Additional Health Concerns Assessment Noted Time PHQ-9 Depression Total Score: 0 04/23/20 25 8:14 AM EDT documented as of this encounter Care Teams Stockroom Clerk Relationship Specialty Start Date End Date Heber Terrell MD [address] [facility] [address] [place] [address] PCP - General Internal Medicine 11/27/24 documented as of this encounter
--- OUTSIDE RECORDS SUMMARY | 2025-10-28 22:08 | XMS_ITS | Clinical Summary ---
Author Organization [employer] [facility] Prior to 04/13/25 Address [address] [place] [address] Care Team Providers Care Light Rail Signal Technician Name Role Phone Heber Terrell MD [...] age to complete this topic Care Teams Light Rail Signal Technician Relationship Specialty Start Date End Date Heber Terrell MD PCP - General Internal Medicine 12/17/22
--- OUTSIDE RECORDS SUMMARY | 2025-10-28 22:08 | XMS_ITS | Clinical Summary ---
Author Organization [facility] 299 Formerly [facility] Address [address] [place] [address] Phone Care Team Providers Care Comber Tender Name Role Phone Heber Terrell MD Primary Care Provider [phone] Allergies Active Allergy Reactions Criticality Noted Date Comments Iodinated Contrast Media Swelling,Anaphylaxis High 08/28/2020 Tongue swelling Latex Rash Low 08/28/2020 Latex bandages Penicillins 08/28/2020 Other Reaction(s): Rash/Dermatitis Shellfish Containing Products Nausea And Vomiting 08/28/2020 scallops Medications Ventolin HFA 90 mcg/actuation inhaler TAKE 2 PUFFS (INHALATION ) 4 TIMES PER DAY (SHORTNESS OF BREATH OR WHEEZING) FOR 1 WEEKS 5 Active divalproex (DEPAKOTE ER) 500 mg 24 hr tablet TAKE 2 TABS BY MOUTH IN THE MORNING AND 1 AT BEDTIME DAILY 5 Active levothyroxine (SYNTHROID, LEVOTHROID) 100 mcg tablet Take 1 tablet (100 mcg total) by mouth 1 (one) time each day. 90 tablet 1 5 Active betamethasone dipropionate (DIPROSONE) 0.05 % cream Apply twice a day of the rash for 10 days 45 g 1 5 Active tirzepatide, weight loss, (Zepbound) 5 mg/0.5 mL injectionIndicati ons:Class 2 obesity due to excess calories with body mass index (BMI) of 36.0 to 36.9 in adult, unspecified whether serious comorbidity present Inject 0.5 mL (5 mg total) under the skin every 7 (seven) days. 2 mL 5 Active tirzepatide, weight loss, (Zepbound) 5 mg/0.5 mL injectionIndicati ons:Class 2 obesity due to excess calories with body mass index (BMI) of 36.0 to 36.9 in adult, unspecified whether serious comorbidity present Inject 0.5 mL (5 mg total) under the skin every 7 (seven) days. 2 mL 5 10/24/20 25 Discontinu ed(Reorder ) Active Problems Problem Noted Date Diagnosed Date Class 1 obesity with serious comorbidity and body mass index (BMI) of 30.0 to 30.9 in adult 07/08/2025 Cigarette smoker 12/27/2022 Overview (11/28/2024): Last Assessment & Plan: Nona is 57 and a current smoker with a greater than 28-[id number]-[id number] smoking history no symptoms that would be consistent with lung cancer. I discussed the risks of lung cancer screening which includes exposure to radiation and the potential for false positives and incidentals. I also honestly discussed the benefits of lung cancer screening which is the identification of early lung cancers when they are much more treated with higher chance of cure. She understood all this and said she will get back to us with a decision about whether she wants to participate in this screening program. Gallstones 12/17/2022 Hyperlipidemia 12/17/2022 Rib pain 12/17/2022 Overview (11/28/2024): Last Assessment & Plan: 57-year-old woman who had some rib pain after surgery which seems to have improved/resolved significantly. There is no correlate on the CT scan for where she did have pain and there is no erythema or other worrisome findings on exam. Regarding this particular problem she can follow-up with me on an as-needed basis moving forward. We did also discuss lung cancer screening as she does meet criteria and she wants to get back to me as to whether she wants to proceed with this. If she does it will be a CT scan low-dose in 1 years time without follow-up unless there is anything new. I did review the findings on the CAT scan with her in detail as above. LGSIL on Pap smear of cervix 01/29/2022 Overview (11/28/2024): 2021 +HPV Colpo: negative Repeat pap 2022 Current every day smoker 08/31/2020 Diverticulitis 08/31/2020 Hypothyroidism 08/31/2020 Nonintractable epilepsy without status epileptic us 08/31/2020 Encounters Date Type Department Care Team Description 10/26/2025 9:50 AM EST - 10/26/2025 11:59 PM EST Hospital Encounter [facility] [address] [place] [phone] Encounter for screening mammogram for breast cancer Discharge Disposition: Home or Self Care 10/14/2025 3:15 PM EST Office Visit Orthopedic [facility] 250 175 [facility] [address] [place] [phone] Martínez Uribe, DPM Ingrown right greater toenail (Primary Dx); Pain in toes of both feet; Dermatophytosis, nail 10/03/2025 11:30 AM EST Telemedicine Bariatric Surgery [facility] 175 [facility] [address] [place] [phone] Overweight (BMI 25.0-29.9) (Primary Dx) 09/30/2025 Telephone Internal Medicine - [place] 175 [facility] [address] [place] [phone] Heber Terrell MD 09/27/2025 8:50 AM EST Lab Draw Station - [place] [address] [place], [place] Hypothyroidism, unspecified type; Skin lesion; Leukocytosis, unspecified type 09/27/2025 Results Follow-Up Obstetrics and Gynecology - [facility] [address] [place], [place] [phone] Trudi Huber RN 09/16/2025 3:45 PM EST Office Visit Internal Medicine [facility] 175 [facility] [address] [place] [phone] Heber Terrell MD Hypothyroidism, unspecified type (Primary Dx); Skin lesion 09/10/2025 8:00 AM EDT Office Visit Bariatric Surgery - [place] 175 [facility] [address] [place] [address] Malini Falcon MD Over weight (Primary Dx) 08/05/2025 3:00 PM EDT Office Visit Gastroenterology - [place] [address] [place] [address] [facility] [address] [place] [address] Abena Stallings PA Abdominal pain, left lower quadrant (Primary Dx); Diverticulosis; History of colon polyps from Last 3 Months Surgical History Surgery Date Site/Laterality Comments CHOLECYSTECTOMY PROCEDURE:CHOLECYSTECTOMY LIVER SURGERY PROCEDURE:LIVER SURGERY HERNIA REPAIR PROCEDURE:HERNIA REPAIR COLONOSCOPY PROCEDURE:COLONOSCOPY CHOLECYSTECTOMY PROCEDURE: HISTORICAL CHOLECYSTECTOMY; COMMENT: liver repair HERNIA REPAIR 11/2022 PROCEDURE: HISTORICAL HERNIA REPAIR/ING; COMMENT: Dr. Falcon OTHER SURGICAL HISTORY 10/2020 PROCEDURE: ---- OTHER ----; COMMENT: hysteroscopy with cervical dilation with uterine perforation COLONOSCOPY PROCEDURE: HISTORICAL COLONOSCOPY Medical History Medical History Date Comments Hypothyroidism DX:Hypothyroidis m Epilepsy (CMS/HCC V24, CMS/HCC V28) DX:Epilepsy (HCC) Diverticulitis DX:Diverticuliti s Hypothyroid DX:Hypothyroid Epilepsy (CMS/HCC V24, CMS/HCC V28) DX:Epilepsy (HCC) Diverticulitis DX:Diverticuliti s Diverticulosis DX:Diverticulosi s History of diverticulitis DX:His tory of diverticulitis Abdominal discomfort DX:Abdomina l discomfort Sleep apnea Family History Medical History Relation Name Comments Breast cancer Aunt mat Bladder Cancer Father Diabetes Father Alzheimer's disease Mother Lung cancer Uncle pat Colon cancer Neg Hx Relation Name Status Comments Aunt mat Alive Father Mother Uncle pat Social History Tobacco Use Types Packs/Day Years Used Date Smoking Tobacco: Every Day Cigarettes 0.7 40.1 Started: 11/14/1983; Last attempted to quit: 12/21/2023 Smokeless Tobacco: Never Tobacco Cessation:Ready to Q uit: Not Asked; Counseling Given: Not Answered Alcohol Use Standard Drinks/Week Comments Yes 1 [...] care for your loved ones. For example, children's tutor or elderly care for an older adult? [...] on file Sexual Orientation Not on file Obstetrics History * This document contains information received from the source organization and may not represent a complete record from that organization. Para Term AB IAB SAB Ectopic Multiple Livin g Live Births 1 Date Outcome GA Total Labor Labor/2nd/3rd Weight Sex Type Anes PTL Anahy A1 A5 Name Clin Last Filed Vital Signs Vital Sign Reading Time Taken Comments Blood Pressure 96/68 09/16/2025 4:00 PM EST Pulse 77 09/16/2025 4:00 PM EST Temperature 35.7 C (96.3 F) 09/16/2025 4:00 PM EST Respiratory Rate 18 06/28/2025 10:36 AM EDT Oxygen Saturation 98% 09/16/2025 4:00 PM EST Inhaled Oxygen Concentration - - Weight 80.3 kg (177 lb) 10/03/2025 11:00 AM EST Height 167.6 cm (5' 6 ) 09/16/2025 4:00 PM EST Body Mass Index 28.57 09/16/2025 4:00 PM EST Plan of Treatment Upcoming Encounters Date Type Department Care Team (Late st Contact Info) Description 01/06/2026 3:00 PM EST Nutrition [facility] [address] [phone] Guillermina Aguirre, RD [address] [phone] 01/16/2026 3:00 PM EST Office Visit [facility] [address] [phone] Martínez Uribe DPM [address] [phone] 03/06/2026 4:00 PM EDT Office Visit Bariatric [facility] [address] [phone] Malini Falcon MD [address] [place] [phone] 08/06/2026 3:00 PM EDT Office Visit Gastroenterology - [address] [place] 299 [facility] [address] [place] [phone] Abena Stallings PA 299 [facility] [address] [place] [address] Health Maintenance Due Date Last Done Comments DTaP,Tdap,and Td Vaccines (1 - Tdap) 1984 Pneumococcal Vaccine: 50+ Years (1 of 2 - PCV) 1983 Zoster Vaccines (1 of 2) 1984 COVID-19 Vaccine (3 - Pfizer risk series) 05/06/2021 04/08/2021, 03/18/2021 Influenza Vaccine (#1) 2025 08/11/2022 Social Influencers of Health Screening 01/14/2026 01/14/2025 Lung Cancer Screening (Low Dose CT) 03/09/2026 03/09/2025, 12/29/2023 Breast Cancer Screening 06/03/2027 06/03/20, 08/31/2024, 08/31/2024, Additional history exists Cervical Cancer Screening: HPV 11/01/2028 11/01/2023 Cholesterol Screening (Lipid Panel) 02/18/2030 02/18/2025, 12/07/2022 Colorectal Cancer Screening: Colonoscopy 06/28/2030 06/28/2025, 06/20/2024 RSV Immunization Adult Patients (1 - 1-dose 75+ series) 2039 HIV Screening Completed 05/13/2021 Hepatitis C Screening Completed 05/13/2021 Depression Screening Completed 04/23/2025 HIB Vaccines Aged Out No longer eligi ble based on patient's age to complete this topic HPV Vaccines Aged Out No longer eligi ble based on patient's age to complete this topic Hepatitis A Vaccines Aged Out No long er eligible based on patient's age to complete this topic Hepatitis B Vaccines Aged Out No long er eligible based on patient's age to complete this topic IPV Vaccines Aged Out No longer eligi ble based on patient's age to complete this topic MMR Vaccines Aged Out No longer eligi ble based on patient's age to complete this topic Meningococcal ACWY Vaccine Aged Out N o longer eligible based on patient's age to complete this topic Meningococcal B Vaccine Aged Out No l onger eligible based on patient's age to complete this topic RSV Immunization Patients Under 20 months Aged Out No longer eligible based on patient's age to complete this topic Varicella Vaccines Aged Out No longer eligible based on patient's age to complete this topic Procedures Procedure Name Priority Date/Time Associated Diagnosis Comments CBC WITH AUTO DIFFERENTIAL Routine 09/27/2025 8:51 AM EST Hypothyroidism, unspecified type Skin lesion CBC AND DIFFERENTIAL Routine 09/27/2025 8:51 AM EST Hypothyroidism, unspecified type Skin lesion COMPREHENSIVE METABOLIC PANEL Routine 09/27/2025 8:51 AM EST Hypothyroidism, unspecified type Skin lesion COLONOSCOPY Routine 06/28/2025 10:15 AM EDT History of colonic polyps MG MAMMO DIGITAL DIAGNOSTIC W MICK LEFT Routine 06/03/2025 3:13 PM EDT Breast cyst, left CT LUNG SCREENING Routine 03/09/2025 9:3 4 AM EDT Cigarette smoker Encounter for screening for lung cancer LIPID PANEL WITH REFLEX TO DIRECT LDL Routine 02/18/2025 9:20 AM EDT Nonintractable epilepsy without status epilepticus, unspecified epilepsy type (CMS/HCC V24, CMS/HCC V28) Hypercholesterolemi a Hypothyroidism, unspecified type HPV Routine 11/01/2023 HEPATITIS C SCREENING Routine 05/13/2021 HIV SCREENING Routine 05/13/2021 from Last 3 Months or Most Recently Relevant to Health Maintenance Results * (ABNORMAL) CBC auto differential (09/27/2025 8:51 AM EST) WBC 9.5 4.8 - 10.8 K/mcL LAB HEMETOLOGY METHOD 09/27/2025 12:17 PM [facility] RBC 4.40 3.80 - 4.80 M/mcL LAB HEMETOLOGY METHOD 09/27/2025 12:17 PM [facility] Hemoglobin 14.4 11.5 - 16.0 g/dL LAB HEMETOLOGY METHOD 09/27/2025 12:17 PM [facility] Hematocrit 42.6 35.0 - 47.0 % LAB HEMETOLOGY METHOD 09/27/2025 12:17 PM [facility] MCV 97.3 79.0 - 98.0 FL LAB HEMETOLOGY METHOD 09/27/2025 12:17 PM [facility] MCH 32.9(H) 27.0 - 32.0 pcg LAB HEMETOLOGY METHOD 09/27/2025 12:17 PM [facility] MCHC 33.8 32.0 - 37.0 g/dL LAB HEMETOLOGY METHOD 09/27/2025 12:17 PM [facility] RDW 12.4 11.0 - 15.0 % LAB HEMETOLOGY METHOD 09/27/2025 12:17 PM [facility] Platelets 237 130 - 400 K/mcL LAB HEMETOLOGY METHOD 09/27/2025 12:17 PM [facility] MPV 10.6 7.0 - 11.0 FL LAB HEMETOLOGY METHOD 09/27/2025 12:17 PM [facility] NRBC 0.0 <1.0 % LAB HEMETOLOGY METHOD 09/27/2025 12:17 PM [facility] NRBC Absolute 0.00 <0.10 K/mcL LAB HEMETOLOGY METHOD 09/27/2025 12:17 PM [facility] Neutrophils Relative 54.7 % LAB HEMETOLOGY METHOD 09/27/2025 12:17 PM [facility] Lymphocytes Relative 34.4 % LAB HEMETOLOGY METHOD 09/27/2025 12:17 PM [facility] Monocytes Relative 8.4 % LAB HEMETOLOGY METHOD 09/27/2025 12:17 PM [facility] Eosinophils Relative 1.4 % LAB HEMETOLOGY METHOD 09/27/2025 12:17 PM [facility] Basophils Relative 0.7 % LAB HEMETOLOGY METHOD 09/27/2025 12:17 PM [facility] Immature Granulocytes Relative 0.4 % LAB HEMETOLOGY METHOD 09/27/2025 12:17 PM [facility] Neutrophils Absolute 5.22 1.50 - 7.00 K/mcL LAB HEMETOLOGY METHOD 09/27/2025 12:17 PM [facility] Lymphocytes Absolute 3.28 1.00 - 5.00 K/mcL LAB HEMETOLOGY METHOD 09/27/2025 12:17 PM [facility] Monocytes Absolute 0.80 0.20 - 1.00 K/mcL LAB HEMETOLOGY METHOD 09/27/2025 12:17 PM [facility] Eosinophils Absolute 0.13 0.00 - 0.50 K/mcL LAB HEMETOLOGY METHOD 09/27/2025 12:17 PM [facility] Basophils Absolute 0.07 0.00 - 0.20 K/mcL LAB HEMETOLOGY METHOD 09/27/2025 12:17 PM [facility] Immature Granulocytes Absolute 0.04(H) 0.00 - 0.03 K/mcL LAB HEMETOLOGY METHOD 09/27/2025 12:17 PM [facility] Blood Venous blood specimen / Unknown Venipuncture / Unknown 09/27/2025 8:51 AM EST 09/27/2025 8:51 AM EST us Heber Terrell MD LAB BLOOD ORDERABLES Final Resul t [facility] [address] [place] [address], * Comprehensive metabolic panel (09/27/2025 8:51 AM EST) Sodium 139 133 - 145 mmol/L LAB CHEMISTRY METHOD 09/27/2025 12:59 PM [facility] Potassium 4.2 3.5 - 5.5 mmol/L LAB CHEMISTRY METHOD 09/27/2025 12:59 PM [facility] Chloride 104 96 - 110 mmol/L LAB CHEMISTRY METHOD 09/27/2025 12:59 PM [facility] CO2 29 21 - 32 mmol/L LAB CHEMISTRY METHOD 09/27/2025 12:59 PM [facility] Anion Gap 6 3 - 11 LAB CHEMISTRY METHOD 09/27/2025 12:59 PM [facility] Glucose 72 70 - 100 mg/dL LAB CHEMISTRY METHOD 09/27/2025 12:59 PM [facility] BUN 15 5 - 25 mg/dL LAB CHEMISTRY METHOD 09/27/2025 12:59 PM [facility] Creatinine 0.60 0.50 - 1.10 mg/dL LAB CHEMISTRY METHOD 09/27/2025 12:59 PM [facility] eGFR 102 >=60 mL/min/1. 73m2 LAB CHEMISTRY METHOD 09/27/2025 12:59 PM [facility] Comment:Calculation based on the Chronic Kidney Disease Epidemiology Collaboration (CKD-EPI) equation refit without adjustment for race. BUN/Creatinine Ratio 25.0 LAB CHEMISTRY METHOD 09/27/2025 12:59 PM [facility] Calcium 8.6 8.5 - 10.5 mg/dL LAB CHEMISTRY METHOD 09/27/2025 12:59 PM [facility] AST (SGOT) 16 10 - 42 unit/L LAB CHEMISTRY METHOD 09/27/2025 12:59 PM [facility] ALT (SGPT) 21 10 - 60 unit/L LAB CHEMISTRY METHOD 09/27/2025 12:59 PM [facility] Alkaline Phosphatase 47 42 - 121 unit/L LAB CHEMISTRY METHOD 09/27/2025 12:59 PM [facility] Total Protein 6.0 6.0 - 8.0 g/dL LAB CHEMISTRY METHOD 09/27/2025 12:59 PM [facility] Albumin 3.2 3.2 - 5.0 g/dL LAB CHEMISTRY METHOD 09/27/2025 12:59 PM [facility] Total Bilirubin 0.3 0.0 - 1.4 mg/dL LAB CHEMISTRY METHOD 09/27/2025 12:59 PM [facility] Blood Venous blood specimen / Unknown Venipuncture / Unknown 09/27/2025 8:51 AM EST 09/27/2025 8:51 AM EST Heber Terrell MD LAB BLOOD ORDERABLES Final Resul t [facility] [address] [place] [address], * COLONOSCOPY Anesthesia - [facility]; [facility] ENDOSCOPY (06/28/2025 10:15 AM EDT) Anatomical Region [...] for surveillance. Narrative 06/28/2025 10:17 AM EDT [facility] GI Patient Name: Nona Riggins Procedure Date: [...] verified by the physician, the nurse, the insurance account representative and the lead technician in the pre-procedure area in the [...] not prolapse). Procedure Code(s): --- Professional --- 76731, Colonoscopy, flexible; with removal of tumor(s), polyp(s), or other lesion(s) by snare technique [id number], 59, Colonoscopy, flexible; with biopsy, single or multiple Diagnosis Code(s): --- Professional --- D12.3, Benign neoplasm of transverse colon (hepatic flexure or splenic flexure) D12.5, Benign neoplasm of sigmoid colon CPT copyright 2020 [employer]. All rights reserved. The codes documented in this report are preliminary and upon bankruptcy assistant review may be revised to meet current compliance requirements. Killian Saeed MD 06/28/2025 10:17:20 AM This report has been signed electronically.Killian Saeed MD Number of Addenda: 0 Note Initiated On: 06/28/2025 9:53 AM Scope Withdrawal Time: 0 hours 9 minutes 20 seconds Scope In: 9:58:09 AM Scope Out: 10:13:57 AM Endoscopy Department at [facility] - [address] [place] [phone] Procedure Note Killian Saeed MD - 06/28/2025 [facility] GI Patient Name: Nona Riggins Procedure Date: [...] the physician, the nurse, theanesthetist and the lead technician in the pre-procedure area in the [...] not prolapse). Procedure Code(s): --- Professional --- 94029, Colonoscopy, flexible; with removal of tumor(s), polyp(s), or other lesion(s) by snare technique [id number], 59, Colonoscopy, flexible; with biopsy,single or multiple Diagnosis Code(s): --- Professional --- D12.3, Benign neoplasm of transverse colon (hepatic flexure or splenic flexure) D12.5, Benign neoplasm of sigmoid colon CPT copyright 2020 [employer]. All rights reserved. The codes documented in this report are preliminary and upon bankruptcy assistant reviewmay be revised to meet current compliance requirements. Killian Saeed MD 06/28/2025 10:17:20 AM This report has been signed electronically.Killian Saeed MD Number of Addenda: 0 Note Initiated On: 06/28/2025 9:53 AM Scope Withdrawal Time: 0 hours 9 minutes 20 seconds Scope In: 9:58:09 AM Scope Out: 10:13:57 AM Endoscopy Department at [facility] - [address] [place] [phone] IMPRESSION: - One diminutive polyp in the [...] MD GI~PROCEDURE ORDERABLES Fin al Result * MG Mammo Digital Diagnostic w Mick Left (06/03/2025 3:13 PM EDT) Anatomical Region Laterality Modality Breast Left Mammography 06/03/2025 3:27 PM EDT Impressions 06/03/2025 3:30 PM EDT No evidence of breast malignancy. Patient was instructed to follow-up with her referring physician. Return to routine screening is recommended. BI-RADS CATEGORY: Mammography: 1 - NEGATIVE Ultrasound: 1 - NEGATIVE RECOMMENDATIONS: Additional bilateral breast imaging recommended. Mammo Location: [facility], [address] [place] [address], [id number], . -------- FINAL REPORT -------- Dictated By: Lizet So Dictated Date: 06/03/2025 15:27 ET Assigned Physician: Lizet So Reviewed and Electronically Signed By: Lizet So Signed Date: 06/03/2025 15:30 ET Workstation ID: [id number] Transcribed By: Self Edit Transcribed Date: 06/03/2025 15:27 ET Narrative 06/03/2025 3:30 PM EDT CLINICAL: 60 years old, Female, patient presents with dark [place] on left breast for one month. COMPARISON: 09/04/2024, 08/24/2023, 08/18/2022 and 08/12/2021 FINDINGS: MAMMOGRAPHY TECHNIQUE: Unilateral left MLO and CC views were obtained digitally with 3-D mammogram (digital breast tomosynthesis). Computer-aided detection was utilized in evaluation of this exam (CAD). There is no evidence of suspicious mass or architectural distortion. No worrisome calcifications are evident. There has been no significant change from prior exam(s). No correlate to patient's area of concern. BREAST DENSITY: A - The breasts are almost entirely fatty. ULTRASOUND TECHNIQUE: Targeted ultrasound of the left breast was performed. Targeted ultrasound of the left breast at 2-3 o'clock demonstrates normal fibroglandular tissue. No focal mass or cyst. No skin thickening. Dayana RUSHING IMG BI PROCEDURES Final Resul t * CT Lung Screening (03/09/2025 9:34 AM EDT) Anatomical Region Laterality Modality Chest Computed Tomogra phy 03/09/2025 1:32 PM EDT Impressions 03/09/2025 1:35 PM EDT No suspicious pulmonary nodules ASSESSMENT: LungRADS Category1: Negative - Continue annual screening with LDCT in 12 months Please see below for additional details of LungRADS Algorithm. Complete Lung RADS description including probabilities of malignancy and prevalence can be found at: http://www.acr.org/Quality-Safety/Resources/LungRADS LungRADS Version 1.0 Assessment Categories Release date: March 11, 2014 Category 0: Incomplete - Additional lung cancer screening CT images and/or comparison with prior CT is needed. - Prior chest CT(s) being located for comparison. - Part or all of the lungs cannot be evaluated. Category 1: Negative - Continue annual screening with LDCT in 12 months - No lung nodules - Nodule(s) with specific calcifications (complete, central, popcorn, concentric rings) and fat containing nodules Category 2: Benign Appearance/Behavior - Continue annual screening with LDCT in 12 months - Solid nodule < 6 mm or new solid nodule < 4 mm. - Part solid nodule(s) < 6 mm total diameter on baseline screening. - Ground glass nodule < 20 mm or > 20 mm and unchanged or slowly growing. - Category 3 or 4 nodules unchanged for at least 3 months. Category 3: Probably Benign - 6 month LDCT - Solid nodule(s) > 6 to < 8 mm at baseline OR new 4 mm to < 6 mm. - Part solid nodule(s) > 6 mm total diameter with solid component < 6 mm OR new < 6 mm total diameter. - Ground glass nodule > [address] or new. Category 4A: Suspicious - 3 month LDCT; PET/CT may be used when there is ? 8 mm solid component - Solid nodule(s) > 8 to < 15 mm at baseline OR growing < 8 mm OR new 6 to < 8 mm. - Part solid nodule(s) > 6 mm with solid component > 6 mm to < 8 mm OR with a new or growing < 4 mm solid component. - Endobronchial nodule. Category 4B: Suspicious - Chest CT with or without contrast, PET/CT and/or tissue sampling depending on the probability of malignancy and comorbidities. PET/CT may be used when there is a > 8 mm solid component. - Solid nodule(s) > 15 mm OR new or growing and > 8 mm - Part solid nodule(s) with a solid component ? 8 mm OR a new or growing ? 4 mm solid component Category 4X: Suspicious - Chest CT with or without contrast, PET/CT and/or tissue sampling depending on the probability of malignancy and comorbidities. PET/CT may be used when there is a ? 8 mm solid component. - Category 3 or 4 nodules with additional features or imaging findings that increases the suspicion of malignancy. Category S: Clinically Significant or Potentially Clinically Significant Findings (non lung cancer) Category C: Modifier for patients with a prior diagnosis of lung cancer who return to screening NOTES: 1) Negative screen: does not mean that an individual does not have lung cancer. 2) Size: nodules should be measured on lung windows and reported as the average diameter rounded to the nearest whole number; for round nodules only a single diameter measurement is necessary. 3) Size Thresholds: apply to nodules at first detection, and that grow and reach a higher size category. 4) Growth: an increase in size of > 1.5 mm. 5) Exam Category: each exam should be coded 0-4 based on the nodule(s). 6) Exam Modifiers: S and C modifiers may be added to the 0-4 category. 7) Lung Cancer Diagnosis: Once a patient is diagnosed with lung cancer, further management (including additional imaging such as PET/CT) may be performed for purposes of lung cancer staging; this is no longer screening. 8) Practice audit definitions: a negative screen is defined as categories 1 and 2; a positive screen is defined as categories 3 and 4. 10) Category 4X: nodules with additional imaging findings that increase the suspicion of lung cancer, such as spiculation, GGN that doubles in size in 1 year, enlarged lymph nodes etc. 11) Nodules with features of an intrapulmonary lymph node should be managed by mean diameter and the 0-4 numerical category classification. 12) Category 3 and 4A nodules that are unchanged on interval CT should be coded as category 2, and individuals returned to screening in 12 months. 13) LDCT = low dose chest CT. -------- FINAL REPORT -------- Dictated By: Jayro Escobar Dictated Date: 03/09/2025 13:32 ET Assigned Physician: Jayro Escobar Reviewed and Electronically Signed By: Jayro Escobar Signed Date: 03/09/2025 13:35 ET Workstation ID: [id number] Transcribed By: Self Edit Transcribed Date: 03/09/2025 13:32 ET Narrative 03/09/2025 1:35 PM EDT History: 60 year-old 42 pack-year current smoker, asymptomatic, for lung cancer screening. Comparison: 12/29/2023 Technique: Helical volumetric imaging of the thorax was performed, using low- dose technique, without IV contrast. DLP: 155 mGy/cm CT dose reduction technique utilized with one or more of the following: Automated exposure control and/or adjustment of the mA and/or kV according to patient size and/or use of iterative reconstruction technique. Findings: Lungs: No evidence of focal pulmonary airspace disease Pleura: There are no pleural effusions. No calcified or noncalcified pleural plaques. Heart/Aorta: Coronary artery calcifications. Esophagus: The esophagus is not significantly thickened or dilated. Lymph Nodes:There are no enlarged thoracic lymph nodes. Upper Abdomen: This study was performed without contrast and with lower than standard dose. These factors reduce the sensitivity for detection of small lesions in the upper abdomen. Postsurgical changes in the upper abdomen Osseous Structures: No acute fracture. Stable superior endplate deformities. Procedure Note Jayro Escobar MD - 03/09/2025 History: 60 year-old 42 pack-year current smoker, asymptomatic, for lungcancer screening. Comparison: 12/29/2023 Technique: Helical volumetric imaging of the thorax was performed, usinglow-dose technique, without IV contrast. DLP: 155 mGy/cm CT dose reduction technique utilized with one or more of the following:Automated exposure control and/or adjustment of the mA and/or kV accordingto patient size and/or use of iterative reconstruction technique. Findings: Lungs: No evidence of focal pulmonary airspace disease Pleura: There are no pleural effusions. No calcified or noncalcifiedpleural plaques. Heart/Aorta: Coronary artery calcifications. Esophagus: The esophagus is not significantly thickened or dilated. Lymph Nodes:There are no enlarged thoracic lymph nodes. Upper Abdomen: This study was performed without contrast and with lowerthan standard dose. These factors reduce the sensitivity for detection ofsmall lesions in the upper abdomen. Postsurgical changes in the upperabdomen Osseous Structures: No acute fracture. Stable superior endplatedeformities. IMPRESSION: No suspicious pulmonary nodules ASSESSMENT: LungRADS Category1: Negative - Continue annual screening with LDCT in 12months Please see below for additional details of LungRADS Algorithm. CompleteLung RADS description including probabilities of malignancy and prevalencecan be found at: http://www.acr.org/Quality-Safety/Resources/LungRADS LungRADS Version 1.0 Assessment Categories Release date: March 11, 2014 Category 0: Incomplete - Additional lung cancer screening CT images and/orcomparison with prior CT is needed. - Prior chest CT(s) being located for comparison. - Part or all of the lungs cannot be evaluated. Category 1: Negative - Continue annual screening with LDCT in 12 months - No lung nodules - Nodule(s) with specific calcifications (complete, central, popcorn,concentric rings) and fat containing nodules Category 2: Benign Appearance/Behavior - Continue annual screening withLDCT in 12 months - Solid nodule < 6 mm or new solid nodule < 4 mm. - Part solid nodule(s) < 6 mm total diameter on baseline screening. - Ground glass nodule < 20 mm or > 20 mm and unchanged or slowlygrowing. - Category 3 or 4 nodules unchanged for at least 3 months. Category 3: Probably Benign - 6 month LDCT - Solid nodule(s) > 6 to < 8 mm at baseline OR new 4 mm to < 6 mm. - Part solid nodule(s) > 6 mm total diameter with solid component < 6 mmOR new < 6 mm total diameter. - Ground glass nodule > [address] or new. Category 4A: Suspicious - 3 month LDCT; PET/CT may be used when there is ?8 mm solid component - Solid nodule(s) > 8 to < 15 mm at baseline OR growing < 8 mm OR new 6 to< 8 mm. - Part solid nodule(s) > 6 mm with solid component > 6 mm to < 8 mm ORwith a new or growing < 4 mm solid component. - Endobronchial nodule. Category 4B: Suspicious - Chest CT with or without contrast, PET/CT and/ortissue sampling depending on the probability of malignancy andcomorbidities. PET/CT may be used when there is a > 8 mm solidcomponent. - Solid nodule(s) > 15 mm OR new or growing and > 8 mm - Part solid nodule(s) with a solid component ? 8 mm OR a new or growing ?4 mm solid component Category 4X: Suspicious - Chest CT with or without contrast, PET/CT and/ortissue sampling depending on the probability of malignancy andcomorbidities. PET/CT may be used when there is a ? 8 mm solidcomponent. - Category 3 or 4 nodules with additional features or imaging findingsthat increases the suspicion of malignancy. Category S: Clinically Significant or Potentially Clinically SignificantFindings (non lung cancer) Category C: Modifier for patients with a prior diagnosis of lung cancerwho return to screening NOTES: 1) Negative screen: does not mean that an individual does not have lungcancer. 2) Size: nodules should be measured on lung windows and reported as theaverage diameter rounded to the nearest whole number; for round nodulesonly a single diameter measurement is necessary. 3) Size Thresholds: apply to nodules at first detection, and that grow andreach a higher size category. 4) Growth: an increase in size of > 1.5 mm. 5) Exam Category: each exam should be coded 0-4 based on the nodule(s). 6) Exam Modifiers: S and C modifiers may be added to the 0-4 category. 7) Lung Cancer Diagnosis: Once a patient is diagnosed with lung cancer,further management (including additional imaging such as PET/CT) may beperformed for purposes of lung cancer staging; this is no longerscreening. 8) Practice audit definitions: a negative screen is defined as categories1 and 2; a positive screen is defined as categories 3 and 4. 10) Category 4X: nodules with additional imaging findings that increasethe suspicion of lung cancer, such as spiculation, GGN that doubles insize in 1 year, enlarged lymph nodes etc. 11) Nodules with features of an intrapulmonary lymph node should bemanaged by mean diameter and the 0-4 numerical category classification. 12) Category 3 and 4A nodules that are unchanged on interval CT should becoded as category 2, and individuals returned to screening in 12 months. 13) LDCT = low dose chest CT. -------- FINAL REPORT -------- Dictated By: Jayro Escobar Dictated Date: 03/09/2025 13:32 ET Assigned Physician: Jayro Escobar Reviewed and Electronically Signed By: Jayro Escobar Signed Date: 03/09/2025 13:35 ET Workstation ID: [id number] Transcribed By: Self Edit Transcribed Date: 03/09/2025 13:32 ET us Steven Peralta MD [facility] CT PROCEDURES Final Result * (ABNORMAL) Lipid panel with reflex to direct LDL (02/18/2025 9:20 AM EDT) Cholesterol 190 0 - 200 mg/dL LAB CHEMISTRY METHOD 02/18/2025 2:52 PM EDT [facility] Triglycerides 90 0 - 150 mg/dL LAB CHEMISTRY METHOD 02/18/2025 2:52 PM EDT [facility] HDL 46 >=40 mg/dL LAB CHEMISTRY METHOD 02/18/2025 2:52 PM EDT [facility] LDL Calculated 126(H) 0 - 100 mg/dL LAB CHEMISTRY METHOD 02/18/2025 2:52 PM EDT [facility] VLDL Cholesterol Jonnathan 18 mg/dL LAB CHEMISTRY METHOD 02/18/2025 2:52 PM EDT [facility] Non HDL Chol. (LDL+VLDL) 144 <145 mg/dL LAB CHEMISTRY METHOD 02/18/2025 2:52 PM EDT [facility] Chol/HDL Ratio 4.1 0.0 - 4.4 LAB CHEMISTRY METHOD 02/18/2025 2:52 PM EDT [facility] Blood Venous blood specimen / Unknown Venipuncture / Unknown 02/18/2025 9:20 AM EDT 02/18/2025 9:20 AM EDT us Heber Terrell MD LAB BLOOD ORDERABLES Final Resul t [facility] [address] [place] [address], [place] [phone] * Cervical Cancer Screening: HPV (11/01/2023) [facility] Cervical Cancer Screening: HPV normal, abstracted Historical Provider HEALTH MAINTENANCE Final Result * HIV Screening (05/13/2021) [facility] HIV Screening abstracted Historical Luz BENJAMIN HEALTH MAINTENANCE Final Result * Hepatitis C Screening (05/13/2021) Hepatitis C Screening abstracted us Historical Provider HEALTH MAINTENANCE Final Result from Last 3 Months or Most Recently Relevant to Health Maintenance Insurance [facility] Care Teams Comber Tender Relationship Specialty Start Date End Date Heber Terrell MD [address] [facility] [address] [place] [address] PCP - General Internal Medicine 11/27/24
--- OUTSIDE RECORDS SUMMARY | 2025-10-28 22:08 | XMS_ITS | Data Portability ---
Author Organization [facility]ILYN Blake [facility], [address] [place] [address] Assessment No assessment recorded. Plan of Treatment Reminders Order Date Submit Date Provider Last Modified By Organization Details Last Modified Time Details Appointments None recorded. Lab None recorded. Referral None recorded. Procedures None recorded. Surgeries None recorded. Imaging None recorded. Medication Orders prednisone 20 mg tablet 2021 022 [id number], [address] [place], [address], 14:00:54 Patient TargetsNo targets recorded. Patient Instructions Encounter Date Encounter Id Patient Instructions Last Modified By Organization Details Last Modified Time 11/03/2022 [id number] trigeminal neuralgia: care instructions hattie Not available 11/03/2022 14:00:51 CALL YOUR PRIMAR Y CARE PHYSICIAN TODAY TO MAKE A FOLLOW UP APPOINTMENT IMMEDIATELY. YOU ALREADY TAKE A MEDICATION FOR SEIZURES WHICH MAY TREAT THIS CONDITION. YOU SHOULD DISCUSS FURTHER WITH YOUR EPILEPSY SPECIALIST. Take over the counter medications such as ibuprofen or tylenol according to package instructions. Do not exceed maximum dosage for age/weight. Do not take anything that you might be allergic to. Make sure to consult us or your primary care physician if you take medications such as blood thinners or blood pressure medications before taking over the counter medications. The best over the counter cough medication for people with high blood pressure is Coricidin, which is available at any pharmacy without a prescription. Drink plenty of water. Go to the nearest emergency department if you develop ANY new or worsening symptoms. Call 911 if you feel that you are having a medical emergency. Call your primary care physician today to set up a follow up appointment within one week. Not following up with your primary care physician may result in adverse health conditions. If you have any questions or concerns, please call us. [email or web address] Not available 11/03/2022 14:00:47 Reason for Referral None Reported. Problems Name Problem SNOMED Code Status Onset Date Resolution Date Notes Provider Name and Address Organization Details Recorded Time Epilepsy 06305407 Active 2021 ROSAEMELY POSEY RA null, [place] - [facility] 13:36:25 Disorder of thyroid gland 57837762 Active 2021 HANKAMER KALPESH BASURTO null, [place] - [facility] 13:36:42 Diverticulitis 622026370 Active 2021 HANKAMER KALPESH BASURTO null, [place] - [facility] 13:36:48 Problem Notes None recorded. Medical Equipment None Reported. Allergies Allergen ID Allergen Name Allergen Category Reaction Reaction Severity Criticality Documentation Date Start Date Code Code System Note Provider Name and Address Organization Details Recorded Time 49457 Product containin g penicilli n (product) medicatio n itching Not available Not available 11/03/2022 87961 8001 SNOMED HANKAMER KALPESH BASURTO null, PA - [facility] 13:36:04 Medications Name Sig Start Date Stop Date Status Note LastModified by Organization Details LastModified Time prednisone 20 mg tablet Take 2 tablets every day by oral route for 5 days. 022 active Not Available Not Available Not Avai lable Depakote active Not Available Not Avai lable Not Available Synthroid active Not Available Not Gianna ilable Not Available Vitals Date Recorded Body height Body mass index (BMI) Body weight Respiratory rate Pain severity - 0-10 verbal numeric rating [Score] - Reported Oxygen saturation Heart rate Body temperature Systolic And Diastolic Provider Name and Address Organization Details Last Updated DateTime 167.64 cm 31.5 kg/m2 68411.5 1 g 20 /min 10 95 % 65 /min 98.6 [degF] 103/64 mm[Hg] ROSA POSEY RA PA - [facility] 13:37:51 Social History Question Answer Notes LastModified by Organizat ion Details LastModified Time Tobacco Smoking Status Current Every Day Smoker MARILYN Mack - [facility] 11/03/2022 13:37:27 Which Illicit Or Recreational Drugs Have You Used? Chinedu Information not available 11/03/2022 Have You Recently Traveled Abroad? No Information not available 11/03/2022 Sex: Unknown Functional Status Question Answer Note LastModified by Organizat ion Details LastModified Time Do you use any illicit or recreational drugs? Yes Information not available 11/03/2022 Do you or have you ever used any other forms of tobacco or nicotine? No Information not available 11/03/2022 What is your level of alcohol consumption? Occasional Information not available 11/03/2022 Mental Status None recorded. Family History Relationship Description Onset Age of this Age Resolved Age Notes LastModified by Organization Details LastModified Time Father Malignant neoplastic disease Not available 13:37:00 Father Diabetes mellitus Not available 13:37:06 Medical History No medical history recorded. Gynecological HistoryNo gynecological history recorded. Obstetrics History GPAL:G 0 P 0 0 0 0 Immunizations Vaccine Type Date Status Note Provider Nam e and Address Organization Details Recorded Time COVID-19, mRNA, LNP-S, PF, 30 mcg/0.3 mL dose 03/18/2021 completed ROSA zapien PA - [facility] 11/03/2022 13:35:51 COVID-19, mRNA, LNP-S, PF, 30 mcg/0.3 mL dose 04/08/2021 completed ROSA zapien, PA - [facility] 11/03/2022 13:35:51 Past Encounters Encounter ID Performer Location Encounter Start Date Encounter Closed Date Diagnosis/Indication Diagnosis SNOMED-CT Code Diagnosis ICD10 Code Diagnosis IMO Codes Diagnosis Note [id number] [address] [place] [address] 06/16/2022 11:34:59 06/16/2022 13:04:02 [id number] MARILYN Chung [address] [facility] [address] [facility] TOMI ramirez [phone] 11/03/2022 13:10:53 11/03/2022 14:13:32 Left trigeminal neuralgia [id number] 5460853 G50.0 Health Concerns Section Related Observation LastModified by Organization Detai ls LastModified Time None Recorded Concern Status LastModified by Organization Details LastModified Time None Recorded Advance Directives Directive None Recorded Payers Insurance Date Sequence Insurance Name Policy Number Policy Pina Covered Member ID Pina Member ID Guarantor Name 11/03/2022 1 [facility] (O) [id number] Nona Riggins [id number] Nona Riggins Notes Date Note Type Note Provider Name and Address Organization Details Recorded Time 11/03/2022 text/html Ear Pain Brief HPIReported by PatientPt reports for the last few days she has been getting an intermittent sharp pain that starts in the left side of the head and shoots down to her ear and a little behind the ear, sometimes into the jaw or confucianist. It usually lasts a few seconds and resolves. Laying on heating pad helps. Patient has a hx of epilepsy and is on depakote. She has had a similar pain on her right side for decades, but very sporadic (maybe once every other month). Denies recent vision changes, blurred vision, double vision, recent URI, n/v/d, injury or trauma to the head. Denies numbness, tingling, weakness, dizziness, headache. Taking OTC without improvement. MARILYN Chung [address] [place], [address], [place] - [facility] 11/03/2022 14:21:10 OBGyn Episode No OBEpisode recorded.
--- OUTSIDE RECORDS SUMMARY | 2025-10-28 22:08 | XMS_ITS | Encounter Summary ---
Author Organization [facility] Address [address] [place] [phone] Phone Care Team Providers Care Line Assigner Name Role Phone Abraham Rosario MD Primary Care Provider Encounter Details Date Type Department Care Team (Late st Contact Info) Description 09/02/2020 Procedure [facility], Ct Scan - [facility] [address] [place] [address] Social History Tobacco Use Types Packs/Day Years [...] on filedocumented in this encounter Care Teams Line Assigner Relationship Specialty Start Date End Date Abraham Rosario MD PCP - General Internal Medicine 09/02/20 documented as of this encounter Additional Source Comments The information contained in this document represents components of the legal health record. It is not the complete legal health record.[facility]
== END 2025-10-28 16:34 | disposition home or self-care (01) ==
LOC: HO.HSMS 15:39
PROVIDERS: PCP Internal Medicine; Visit Provider Physician Assistant Medical
DX: G40.909 Epilepsy, unspecified, not intractable, without status epilepticus (principal); G47.33 Obstructive sleep apnea (adult) (pediatric); Z99.89 Dependence on other enabling machines and devices; R41.89 Other symptoms and signs involving cognitive functions and awareness; R25.1 Tremor, unspecified; R68.89 Other general symptoms and signs
CPT/HCPCS: 99214

== ENCOUNTER → 2025-10-28 15:38 | Outpatient (BNVA) | payer OTHER, SELFPAY | PROVIDERS: PCP Internal Medicine; Visit Provider Physician Assistant Medical | DX: G40.909 Epilepsy, unspecified, not intractable, without status epilepticus (principal); G47.33 Obstructive sleep apnea (adult) (pediatric); Z99.89 Dependence on other enabling machines and devices; R41.89 Other symptoms and signs involving cognitive functions and awareness; R25.1 Tremor, unspecified; R68.89 Other general symptoms and signs; Z79.899 Other long term (current) drug therapy | CPT/HCPCS: 99212 ==